=== PATIENT | female | born 1995 ===

== ENCOUNTER 2024-02-29 07:25 | Inpatient (IN) ==
[2024-02-29] MEDS ORDERED: ACETAMINOPHEN 325 MG TAB PO PRN (08:18)
[2024-02-29] MEDS ORDERED: OXYTOCIN 30 UNITS/NSS 30 UNITS/500 ML BAG IV PRN ×3 (08:18→23:48)
[2024-02-29] MEDS ORDERED: LIDOCAINE 1% LOCAL 20 ML VIAL INFIL PRN (08:18)
[2024-02-29] MEDS ORDERED: CALCIUM CARBONATE 500 MG CHEWABLE TAB PO PRN (08:18)
--- OUTSIDE RECORDS SUMMARY | 2024-02-29 08:26 | External Medical Summary | Summary of Care ---
Author Name Unknown Organization [facility] Address [address] [facility] [facility] [address] Phone [phone] Care Team Providers Care Plastering Supervisor Name Role Phone Unavailable Primary Care Provider Unavailabl e Reason for Visit * Reason Comments Return Visit 39w 4d Encounter Details Date Type Department Care Team (Late st Contact Info) Description 02/26/2024 7:30 AM EST Office Visit Gynecology/Obstetri Lori [address]cintosh [address] [address] Felicia Briceno PA-C [address] [facility] [place] [address] [address] [facility] [address] [place] [address] Supervision of other normal , antepartum*; Abnormal glucose tolerance in mother complicating Allergies No known active allergiesdocumented as of this encounter (statuses as of 02/26/2024) Medications DHA 200 MG Oral Capsule (docosahexaenoi c Acid) Take 1 Capsule by mouth in the morning. Active Breast Pump For breast feeding mother 1 Each 12/15/2023 Active documented as of this encounter (statuses as of 02/26/2024) Active Problems Problem Noted Date Diagnosed Date Antepartum anemia complicating 024 Abnormal glucose tolerance in mother complicatin g 12/18/2023 Overview (12/18/2023): 1 hour elevated 10/28. Supervision of other normal , antepartu m 08/28/2023 Estimated Date of Delivery Comme nts Yes 02/29/2024 Based on Ultraso und documented as of this encounter (statuses as of 02/26/2024) Immunizations Name Administration Dates Next Due Adenovirus Type 4 And Type 7 Vacc, Live Oral 10/22/2014 Anthrax Vaccine 06/12/2023 Anthrax Vaccine, Adjuvanted (Cyfendus) 0 04/22/2021,01/03/2020,11/10/2018,04/29,09/08/2017,12/11/2015,11/05/2015 DTaP Dipth/Tet/Acell Pertussis (Infanrix), Peds 06/09/2007,11/03/1997,1996,09/17,1996 HIB PRP-T, 4 Dose, PF, IM (H iberix, ActHib) 11/03/1997,1996,1996,06/18 HPV Vaccine, 9-Valent 08/21/2008,11/28/2007,07/21 Hepatitis A Vaccine 09/09/2008,11/28/2007 Hepatitis B, 0-19 yrs 06/08/2015, 015,10/22/2014,10/29,1996,1996 IPV - Polio Virus Vaccine (Inact) 2014,09/17/2001,11/03/1997,08/28,1996 MMR - Measles/Mumps/Rubella Vaccine 07/22,12/02/2014,10/22/2014,01/27,09/17/2001 Meningococcal MCV4O Conjugat e Vaccine (Menveo) 05/08/2012 Meningococcal MCV4P Conjugat e Vaccine (Menactra) 10/17/2014 Meningococcal Polysaccharide Vaccine (Menommune) 08/03/2007 PPD 12/12/2022,01/03/2020 Seasonal Influenza Vac., MDV , IM, 0.5 mL (Fluzone) 12/17/2020,10/19/2018,11/21/2017 Seasonal Influenza Virus Vac cine, Unspecified Formulation 12/17/2020,12/13/2019,12/02/2013,02/09,02/02/2010 Seasonal Influenza, Trivalen t, (IIV3), PF, (Fluzone) 12/11/2015,12/02/2014 TDAP (age 10 and older)(Boostrix) 10/17/2014 TDAP, Age 7 and older, IM (Adacel) 05/08/2012 Varicella Vaccine (Chicken Pox) 08/03/2007,11/03 documented as of this encounter Social History Tobacco Use Types Packs/Day Years Used Date Smoking Tobacco: Never Smokeless Tobacco: Never Alcohol Use Standard Drinks/Week Comments Not Currently 0 (1 standard drink = 0.6 oz pur e alcohol) [place] Depression Scale Answer Date Recorded [place] Depression Scale Total 0 08/28/2023 The thought of harming myself has occurred to me . Never 08/28/2023 Estimated Date of Delivery Comme nts Yes 02/29/2024 Based on Ultraso und Sex and Gender Information Value Date Recorded Sex Assigned at Not on file Legal Sex Female 2:57 PM EDT Gender Identity Not on file Sexual Orientation Not on file documented as of this encounter Last Filed Vital Signs Vital Sign Reading Time Taken Comments Blood Pressure 98/64 02/26/2024 7:52 AM EST Pulse - - Temperature - - Respiratory Rate - - Oxygen Saturation - - Inhaled Oxygen Concentration - - Weight 67.9 kg (149 lb 12.8 oz) 02/26/2024 7:52 AM EST Height - - Body Mass Index 28.3 01/25/2024 1:29 PM EST documented in this encounter Progress Notes * Felicia Briceno PA-C - 02/26/2024 7:57 AM EST Lokesh Luciano is a 28 year old female who presents today for an elective repeat membrane sweep. She is currently scheduled for IOL at [facility] on 03/04. She had her BO on 02/21 - at that time, membranesweep was completed. She is feeling well since this visit, notes small amount of vaginal spotting. Reports good FM, denies LOF or contractions. She is scheduled for her next BO on 03/01. BP 98/64 | Wt 67.9 kg (149 lb 12.8 oz) | LMP 06/01/2023 (Approximate) | BMI 28.30 kg/m | BSA 1.71m FHT 130s CE: /-2 Membrane sweep completed per patient's request Underwriting Analyst Documentation Patient offered lan engineer and accepted. Name of lan engineer: Mildred Fajardo LPN TC placed to [facility] to check on earlier IOL date, nothing available sooner, will plan to keep IOL as scheduled on 03/04. Keep BO as scheduled for 03/01. Labor precautions and kick counts reviewed. documented in this encounter Nursing Notes * Paradise Quintana LPN - 02/26/2024 7:53 AM EST Chief Complaint Patient presents with Return Visit 39w 4d Spotting since last membrane sweep documented in this encounter Plan of Treatment Upcoming Encounters Date Type Department Care Team (Late st Contact Info) Description 03/01/2024 10:30 AM EST Office Visit Gynecology/Obstetrics, [place] [place] [address] Silvana Edwards PA-C [address] [place] [address] Health Maintenance Due Date Last Done Comments Depression Screening 2008 COVID-19 Vaccine ( season) 2023 12/13/2020, 11/08/2020 Influenza Vaccine (FLU shot) (#1) 2023 12/17/2020, 12/17/2020, 12/13/2019, Additional history exists DTap/Tdap Vaccines (8 - Td or Tdap) 10/17/2024 10/17/2014, 05/08/2012, 06/09/2007, Additional history exists Pap Smear 08/27/2026 08/28/2023 HPV (Gardasil) Vaccine Completed 9, 11/28/2007, 08/03/2007 MENINGOCOCCAL (MENACTRA/MENVEO) Completed 10/17/2014, 05/08/2012, 08/03/2007 Hepatitis B Vaccine Completed 06/08/2015, 12/02/2014, 10/22/2014, Additional history exists Pneumococcal Vaccine: Pediatrics (0 to 5 Years) and At-Risk Patients (6 to 18 Years and 19+ Years) Aged Out No longer eligib le based on patient's age to complete this topic documented as of this encounter Medical Devices Not on filedocumented as of this encounter Visit Diagnoses Diagnosis Supervision of other normal , antepartum- Primary Abnormal glucose tolerance in mother complicating Abnormal maternal glucose tolerance, complicating , childbirth, or the puerperium, unspecified as to episode of care documented in this encounter"
--- OUTSIDE RECORDS SUMMARY | 2024-02-29 08:26 | External Medical Summary ---
Author Name Unknown Address Unknown Organization [id number]:[facility] - [address] [place] [address] Laboratory Report Ordering Provider Test Date Status JEFERSON MONSALVE 02/09/2024 10:24:43 Final Observation Date Value Abnormality Reference (Units ) Status WBC, Total 02/09/2024 10:24:43 6.19 4.00-10.80 (K/uL) Final RBC 02/09/2024 10:24:43 3.60 3.85-5.15 (M/uL) Final Hemoglobin 02/09/2024 10:24:43 11.4 Below low normal 12.0-15.3 (g/dL) Final HCT 02/09/2024 10:24:43 35.1 Below low normal 36.0-45.2 (%) Final MCV 02/09/2024 10:24:43 97.5 81.5-97.5 (fL) Final MCH 02/09/2024 10:24:43 31.7 27.0-34.0 (pg) Final MCHC 02/09/2024 10:24:43 32.5 32.0-36.0 (g/dL) Final RDW 02/09/2024 10:24:43 13.1 11.5-15.5 (%) Final Platelets 02/09/2024 10:24:43 147 140-400 (K/uL) Final MPV 02/09/2024 10:24:43 11.8 6.6-11.1 (fL) Final Nucleated erythrocytes/100 leukocytes [Ratio] in Blood by Automated count 02/09/2024 10:24:43 0 <=0 (/100 WBCs) Final Performing Location [facility] - [address] [place] [address]
--- OUTSIDE RECORDS SUMMARY | 2024-02-29 08:26 | External Medical Summary | Summary of Care ---
Author Name Unknown Organization [facility] Address [address] [facility] [place] [address] Phone [phone] Care Team Providers Care Order Packer Or Packager Name Role Phone Unavailable Primary Care Provider Unavailabl e Reason for Visit * Reason Comments Return Visit 39w0d Encounter Details Date Type Department Care Team (Late st Contact Info) Description 02/22/2024 10:00 AM EST Office Visit [facility]necology[facility]st[facility] [address] [facility] [address] Angela Alex MD [address] [place] [phone] 39 weeks gestation of *; Abnormal glucose tolerance in mother complicating ; Antepartum anemia complicating ; Supervision of other normal , antepartum Allergies No known active allergiesdocumented as of this encounter (statuses as of 02/22/2024) Medications DHA 200 MG Oral Capsule (docosahexaenoi c Acid) Take 1 Capsule by mouth in the morning. Active Breast Pump For breast feeding mother 1 Each 12/15/2023 Active documented as of this encounter (statuses as of 02/22/2024) Active Problems Problem Noted Date Diagnosed Date Antepartum anemia complicating 024 Abnormal glucose tolerance in mother complicatin g 12/18/2023 Overview (12/18/2023): 1 hour elevated 12/17. Supervision of other normal , antepartu m 08/28/2023 Estimated Date of Delivery Comme nts Yes 02/29/2024 Based on Ultraso und documented as of this encounter (statuses as of 02/22/2024) Immunizations Name Administration Dates Next Due Adenovirus [...] drink = 0.6 oz pur e alcohol) [place] Depression Scale Answer Date Recorded [place] Depression Scale Total 0 08/28/2023 The thought [...] Sign Reading Time Taken Comments Blood Pressure 100/60 02/22/2024 9:56 AM EST Pulse - - Temperature 36.4 C (97.5 F) 02/22/2024 9:56 AM ES T Respiratory Rate - - Oxygen Saturation - - Inhaled Oxygen Concentration - - Weight 67.7 kg (149 lb 3.2 oz) 02/22/2024 9:56 A M EST Height - - Body Mass Index 28.19 01/25/2024 1:29 PM EST documented in this encounter Progress Notes * Angela Alex MD - 02/22/2024 10:00 AM EST Patient is 28 year old at 39 0/7 weeks who presents for BO visit Denies leaking of fluid, or vaginal bleeding. Noted good movement. Ctx on and off, increased at nightime Denies headache, blurry vision, RUQ or epigastric pain. Would like membrane stripped today, would like to pursue scheduling induction at [facility] by 40 weeks Problem list reviewed BP 100/60 | Temp 36.4 C (97.5 F) | Wt 67.7 kg (149 lb 3.2 oz) | LMP 06/01/2023 (Approximate) | BMI 28.19 kg/m | BSA 1.71 m FH: 36 FHT: 145 Cx: 1-2/50/-3, sutures felt, membrane swept. Patient tolerated procedure well Supervisor Last Model Department Documentation Provider requested coat repair inspector. Name of coat repair inspector: Yuli Ford LPN Plan: Labor and preeclampsia warnings reviewed Flu vaccine previously declined Will have nursing all to schedule IOL at [facility] RTC 1 weeks V Abi MARINELLI PhD documented in this encounter Nursing Notes * Yuli Ford LPN - 02/22/2024 9:57 AM EST Chief Complaint Patient presents with Return Visit 39w0d Pt denied having any concerns at today's visit. Pt reports positive movement. Yuli Ford LPN 02/22/2024 9:57 AM documented in this encounter Plan of Treatment Upcoming Encounters Date Type Department Care Team (Late st Contact Info) Description 03/01/2024 10:30 AM EST Office Visit Gynecology/Obstetrics, [address] [place] [address] Silvana Edwards PA-C [address] [place] [address] Health Maintenance Due Date Last Done Comments [...] as of this encounter Visit Diagnoses Diagnosis 39 weeks gestation of - Primary state, incidental Abnormal glucose tolerance in mother complicating Abnormal maternal glucose tolerance, complicating , childbirth, or the puerperium, unspecified as to episode of care Antepartum anemia complicating Anemia, antepartum Supervision of other normal , antepartum documented in this encounter"
--- OUTSIDE RECORDS SUMMARY | 2024-02-29 08:26 | External Medical Summary | Summary of Care ---
Author Name Unknown Organization [facility] Address [address] [facility] [place] [address] Phone [phone] Care Team Providers Care Plumbing Warehouse Helper Name Role Phone Unavailable Primary Care Provider Unavailabl e Reason for Visit * Reason Comments Return Visit 38w1d Encounter Details Date Type Department Care Team (Late st Contact Info) Description 02/16/2024 11:30 AM EST Office Visit Gynecology/Obstetric Lori diallo [address] [place] [address] Jocy Padilla MD [address] [place] [address] 38 weeks gestation of *; Abnormal glucose tolerance in mother complicating ; Uterine size date discrepancy Allergies No known active allergiesdocumented as of this encounter (statuses as of 02/16/2024) Medications DHA 200 MG Oral Capsule (docosahexaenoi c Acid) Take 1 Capsule by mouth in the morning. Active Breast Pump For breast feeding mother 1 Each 12/15/2023 Active documented as of this encounter (statuses as of 02/16/2024) Active Problems Problem Noted Date Diagnosed Date Antepartum anemia complicating 024 Abnormal glucose tolerance in mother complicatin g 12/18/2023 Overview (12/18/2023): 1 hour elevated 12/17. Supervision of other normal , antepartu m 08/28/2023 Estimated Date of Delivery Comme nts Yes 02/29/2024 Based on Ultraso und documented as of this encounter (statuses as of 02/16/2024) Immunizations Name Administration Dates Next Due Adenovirus [...] Date Smoking Tobacco: Never Smokeless Tobacco: Never Tobacco Cessation:Counseling Given: Not Answered Alcohol Use Standard Drinks/Week Comments Not Currently 0 (1 standard drink = 0.6 oz pur e alcohol) [place] Depression Scale Answer Date Recorded [place] Depression Scale Total 0 08/28/2023 The thought [...] Sign Reading Time Taken Comments Blood Pressure 110/66 02/16/2024 11:39 AM EST Pulse - - Temperature 36.6 C (97.8 F) 02/16/2024 11:[address] Respiratory Rate - - Oxygen Saturation - - Inhaled Oxygen Concentration - - Weight 67.6 kg (149 lb) 02/16/2024 11:39 AM EST Height - - Body Mass Index 28.15 01/25/2024 1:29 PM EST documented in this encounter Progress Notes * Jocy Padilla MD - 02/16/2024 11:46 AM EST Lokesh Luciano is a 28 year old female here for her routine OB appointment at 38w1d Her Estimated Date of Delivery: 02/29/24 REVIEW OF SYSTEMS: She affirms movement. Denies vaginal bleeding, LOF, contractions, N/V, headaches [place] Depression Scale: No data recorded [place] suicide question and score: Score of 3 = Yes, quite often. Score of 2 = Sometimes. Score of 1 = Hardly ever No data recorded PHYSICAL EXAM: Filed Vitals: 02/16/24 1139 BP: 110/66 Temp: 36.6 C (97.8 F) Weight: 67.6 kg (149 lb) +FHT 145 bpm Fundal height 35 cm ASSESSMENT/PLAN: (O99.810) Abnormal glucose tolerance in mother complicating Plan: 3 hour GTT was within normal limits. (O26.849) Uterine size date discrepancy Plan: US PREG FOLLOW-UP EACH FETUS (Z3A.38) 38 weeks gestation of (primary encounter diagnosis) Plan: - recommended flu vaccine - patient declined today - labor precautions and kick counts reviewed - RTO in 1 week Jocy Padilla MD documented in this encounter Nursing Notes * Yuli Ford LPN - 02/16/2024 11:39 AM EST Chief Complaint Patient presents with Return Visit 38w1d Pt reports positive movement Yuli Ford LPN 02/16/2024 11:39 AM documented in this encounter Plan of Treatment Upcoming Encounters Date Type Department Care Team (Late st Contact Info) Description 02/22/2024 10:00 AM EST Office Visit Gynecology/Obstetrics, [address] [place] [address] Angela Alex MD [address] [facility] [place] [address] Health Maintenance Due Date Last Done Comments [...] Not on filedocumented as of this encounter Results * US PREG FOLLOW-UP EACH FETUS (02/16/2024 12:36 PM EST) Anatomical Region Laterality Modality Pelvis, Body Ultrasound 02/16/2024 1:07 PM EST Impressions 02/16/2024 1:05 PM EST IMPRESSION 1. Growth within normal limits utilizing FRANKY from initial scan, as above. 2. Normal BLAYNE 3. Vertex presentation. Narrative 02/16/2024 1:05 PM EST EXAM US PREG FOLLOW-UP EACH FETUS - 02/16/2024 12:36 pm HISTORY Uterine size dates discrepancy COMPARISON 08/18/2023. TECHNIQUE Sonographic examination performed. FINDINGS General : Aleman Presentation: Vertex heart rate: 161 bpm Amniotic Fluid: MVP 7.0 cm BLAYNE: 16.2 cm which is between the 50th and 95th percentiles for this stage of . Placenta: Anterior, no previa Anatomy 4-chamber view: Seen Stomach: Seen Kidneys: Seen Bladder: Seen Biometry The previous study of 08/18/2023 estimated the date of delivery of 02/29/2024. Utilizing that date, current gestational age is 38 weeks 1 day. Biparietal diameter: 9.0 cm, 36w 4d Head circumference: 32.3 cm, 36w 4d Abdominal circumference: 34.1 cm, 38w 0d Femur length: 7.2 cm, 36w 5d Humeral length: 6.1 cm, 35w 2d HC/AC: 0.95, within normal limits EFW: 3186 g +/- 465 g which is the 43rd percentile. Utilizing the date of delivery obtained from the initial scan, growth of the BPD, HC, AC, femur and humerus is within normal limits. The humerus is lower range of normal. Procedure Note Bryan Dior MD - 02/16/2024 EXAM US PREG FOLLOW-UP EACH FETUS - 02/16/2024 12:36 pm HISTORY Uterine size dates discrepancy COMPARISON 08/18/2023. TECHNIQUE Sonographic examination performed. FINDINGS General : Aleman Presentation: Vertex heart rate: 161 bpm Amniotic Fluid: MVP 7.0 cm BLAYNE: 16.2 cm which is between the 50th and 95th percentiles for this stageof . Placenta: Anterior, no previa Anatomy 4-chamber view: Seen Stomach: Seen Kidneys: Seen Bladder: Seen Biometry The previous study of 08/18/2023 estimated the date of delivery of02/29/2024. Utilizing that date, current gestational age is 38 weeks 1day. Biparietal diameter: 9.0 cm, 36w 4d Head circumference: 32.3 cm, 36w 4d Abdominal circumference: 34.1 cm, 38w 0d Femur length: 7.2 cm, 36w 5d Humeral length: 6.1 cm, 35w 2d HC/AC: 0.95, within normal limits EFW: 3186 g +/- 465 g which is the 43rd percentile. Utilizing the date of delivery obtained from the initial scan, growth ofthe BPD, HC, AC, femur and humerus is within normal limits. The humerusis lower range of normal. IMPRESSION IMPRESSION 1. Growth within normal limits utilizing FRANKY from initial scan, asabove. 2. Normal BLAYNE 3. Vertex presentation. us Jocy Padilla MD RAD ULTRASOUND Final Result documented in this encounter Visit Diagnoses Diagnosis 38 weeks gestation of - Primary state, incidental Abnormal glucose tolerance in mother complicating Abnormal maternal glucose tolerance, complicating , childbirth, or the puerperium, unspecified as to episode of care Uterine size date discrepancy Uterine size date discrepancy, antepartum condition or complication Uterine size date discrepancy Uterine size date discrepancy, antepartum condition or complication documented in this encounter
--- OUTSIDE RECORDS SUMMARY | 2024-02-29 08:26 | External Medical Summary | Summary of Care ---
Author Name Unknown Organization [facility] Address [address] [facility] [address] Phone [phone] Care Team Providers Care First Mate Name Role Phone Unavailable Primary Care Provider Unavailabl e Reason for Visit * Reason Comments Return Visit 37w1d Encounter Details Date Type Department Care Team (Late st Contact Info) Description 02/09/2024 9:00 AM EST Office [facility] [address] Angela Alex MD [address] [place] [phone] 37 weeks gestation of *; Abnormal glucose tolerance in mother complicating ; Supervision of other normal , antepartum; Antepartum anemia complicating ; Decreased movements in third trimester, single or unspecified fetus Allergies No known active allergiesdocumented as of this encounter (statuses as of 02/09/2024) Medications DHA 200 MG Oral Capsule (docosahexaenoi c Acid) Take 1 Capsule by mouth in the morning. Active Breast Pump For breast feeding mother 1 Each 12/15/2023 Active documented as of this encounter (statuses as of 02/09/2024) Active Problems Problem Noted Date Diagnosed Date Antepartum anemia complicating 024 Abnormal glucose tolerance in mother complicatin g 12/18/2023 Overview (12/18/2023): 1 hour elevated 12/17. Supervision of other normal , antepartu m 08/28/2023 Estimated Date of Delivery Comme nts Yes 02/29/2024 Based on Ultraso und documented as of this encounter (statuses as of 02/09/2024) Immunizations Name Administration Dates Next Due Adenovirus [...] drink = 0.6 oz pur e alcohol) [place] Depression Scale Answer Date Recorded [place] Depression Scale Total 0 08/28/2023 The thought [...] Sign Reading Time Taken Comments Blood Pressure 118/64 02/09/2024 8:55 AM EST Pulse - - Temperature 36.3 C (97.3 F) 02/09/2024 8:55 AM ES T Respiratory Rate - - Oxygen Saturation - - Inhaled Oxygen Concentration - - Weight 66.9 kg (147 lb 6.4 oz) 02/09/2024 8:55 A M EST Height - - Body Mass Index 27.85 01/25/2024 1:29 PM EST documented in this encounter Progress Notes * Angela Alex MD - 02/09/2024 9:00 AM EST Patient is 28 year old at 37 1/7 weeks who presents for BO visit States she had possible loss of fluid approximately 36 hours go, and then regular contractions every 3 minutes that lasted for 1-1/2 hours but have since subsided. She also notes decreased in amount of movement of the baby is still moving. No other complaints at this time Discuss further with insurance and is now planning to deliver at [facility] Problem list reviewed BP 118/64 | Temp 36.3 C (97.3 F) | Wt 66.9 kg (147 lb 6.4 oz) | LMP 06/01/2023 (Approximate) | BMI 27.85 kg/m | BSA 1.7 m FH: 35 FHT: 145-150 Sterile speculum exam: Negative pooling, negative Valsalva, negative Nitrazine Patient desires cervical check Cx: Gang Supervisor Pipe Lines Documentation Provider requested hull sorter. Name of hull sorter: Mildred Fajardo LPN ASSESSMENT assessment with Non-stress test completed on 02/09/2024 at 37 1/7 gestation for indication ofdecreased movement heart baseline: 140-145 bpm Variability: Moderate Accelerations: present Decelerations: absent Contractions: irregular NST strip reviewed, interpreted, and approved by OB provider, Randy Alex. NST strip stored in clinic storage file NST start time: 1002 NST stop time: 1035 Plan: Labor and preeclampsia warnings reviewed RTC 1 weeks Randy Alex MD PhD documented in this encounter Nursing Notes * Mildred Fajardo LPN - 02/09/2024 8:52 AM EST Chief Complaint Patient presents with Return Visit 37w1d Pt states two nights ago while having intercourse she felt a pop and she feels like her water broke. States she had a gush of fluid and then started having contractions every 3 minutes lasting 40 seconds for an hour and a half then subsided. Has felt decreased movement since this happened and states she intermittently feels a small trickle of fluid but nothing that is consistent. Denies any vaginal bleeding. GBS neg Mildred Fajardo LPN documented in this encounter Plan of Treatment Upcoming Encounters Date Type Department Care Team (Late st Contact Info) Description 02/09/2024 10:30 AM EST Laboratory Laboratory, [address] [place] [address] [facility], Lab [address] [place] [address] Antepartum anemia complicating 02/16/2024 11:30 AM EST Office Visit Gynecology/Obstetric s, [place] [address] [place] [address] Jocy Padilla MD [address] [place] [address] Scheduled Orders Name Type Priority Associated Diagnoses Orde r Schedule CBC Lab Routine Antepartum anemia complicating Expected: 02/09/2024, Expires: 02/08/2025 Health Maintenance Due Date Last Done Comments Depression Screening 2008 COVID-19 Vaccine ( season) 2023 12/13/2020, 11/08/2020 Influenza Vaccine (FLU shot) (#1) 2023 12/17/2020, 12/17/2020, 12/13/2019, Additional history exists DTap/Tdap Vaccines (8 - Td or Tdap) 10/17/2024 10/17/2014, 05/08/2012, 06/09/2007, Additional history exists Pap Smear 08/27/2026 08/28/2023 HPV (Gardasil) Vaccine Completed , 11/28/2007, 08/03/2007 MENINGOCOCCAL (MENACTRA/MENVEO) Completed 10/17/2014, 05/08/2012, 08/03/2007 Hepatitis B Vaccine Completed 06/08/2015, 12/02/2014, 10/22/2014, Additional history exists Pneumococcal Vaccine: Pediatrics (0 to 5 Years) and At-Risk Patients (6 to 64 Years) Aged Out No longer eligible based on patient's age to complete this topic documented as of this encounter Medical Devices Not on filedocumented as of this encounter Visit Diagnoses Diagnosis 37 weeks gestation of - Primary state, incidental Abnormal glucose tolerance in mother complicating Abnormal maternal glucose tolerance, complicating , childbirth, or the puerperium, unspecified as to episode of care Supervision of other normal , antepartum Antepartum anemia complicating Anemia, antepartum Decreased movements in third trimester, single or unspecified fetus Antepartum anemia complicating Anemia, antepartum documented in this encounter"
--- OUTSIDE RECORDS SUMMARY | 2024-02-29 08:26 | External Medical Summary | Summary of Care ---
Author Name Unknown Organization [facility] Address [address] [facility] [place] [address] Phone [phone] Care Team Providers Care Modeling And Simulation Analyst Name Role Phone Unavailable Primary Care Provider Unavailabl e Reason for Visit * Reason Comments Return Visit 39w0d Encounter Details Date Type Department Care Team (Late st Contact Info) Description 02/22/2024 10:00 AM EST Office [facility] [address] Angela Alex MD [address] [place] [phone] 39 weeks gestation of *; Abnormal glucose [...] drink = 0.6 oz pur e alcohol) [place] Depression Scale Answer Date Recorded [place] Depression Scale Total 0 08/28/2023 The thought [...] would like to pursue scheduling induction at [facility] by 40 weeks Problem list reviewed BP 100/60 | Temp 36.4 C (97.5 F) | Wt 67.7 kg (149 lb 3.2 oz) | LMP 06/01/2023 (Approximate) | BMI 28.19 kg/m | BSA 1.71 m FH: 36 FHT: 145 Cx: 1-2/50/-3, sutures felt, membrane swept. 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 Name of news specialist: Yuli Ford LPN Plan: Labor and preeclampsia warnings reviewed Flu vaccine previously declined Will have nursing all to schedule IOL at [facility] RTC 1 weeks V Abi MARINELLI PhD [...] 03/01/2024 10:30 AM EST Office Visit Gynecology/Obstetrics, [address] [place] [address] Silvana Edwards PA-C [address] [place] [address] Health Maintenance Due Date Last Done Comments [...]
--- OUTSIDE RECORDS SUMMARY | 2024-02-29 08:26 | External Medical Summary | Summary of Care ---
Author Name Unknown Organization [facility] Address [address] [place] [address] Phone [phone] Care Team Providers Care Metal Tube Cutter Name Role Phone Unavailable Primary Care Provider Unavailabl e Reason for Visit * Reason Comments Outpatient Testing Encounter Details Date Type Department Care Team (Late st Contact Info) Description 02/09/2024 10:30 AM EST Laboratory Laboratory, [facility] [address] [place] [id number] [facility], Lab [address] [place] [address] Antepartum anemia complicating Allergies No known active allergiesdocumented as [...] drink = 0.6 oz pur e alcohol) Martin Depression Scale Answer Date Recorded Martin Depression Scale Total 0 08/28/2023 The thought of harming myself has occurred to me . Never 08/28/2023 Estimated Date of Delivery Comme nts Yes 02/29/2024 Based on Ultraso und Sex and Gender Information Value Date Recorded Sex Assigned at Not on file Legal Sex Female 2:57 PM EDT Gender Identity Not on file Sexual Orientation Not on file documented as of this encounter Plan of Treatment Upcoming Encounters Date Type Department Care Team (Late st Contact Info) Description 02/16/2024 11:30 AM EST Office Visit Gynecology/Obstetrics, [address] [place] [address] Jocy Padilla MD [address] [place] [address] Pending Results Name Type Priority Associated Diagnoses Date /Time CBC Lab Routine Antepartum anemia complicating 02/09/2024 10:24 AM EST Health Maintenance Due Date Last Done Comments [...] as of this encounter Visit Diagnoses Diagnosis Antepartum anemia complicating Anemia, antepartum documented in this encounter
--- OUTSIDE RECORDS SUMMARY | 2024-02-29 08:26 | External Medical Summary | Summary of Care ---
Author Name Unknown Organization [facility] Address [address] [facility] [address] Phone [phone] Care Team Providers Care Management Recruiter Name Role Phone Unavailable Primary Care Provider Unavailabl e Reason for Visit * Reason Comments Return Visit Possible fluid robson puma Encounter Details Date Type Department Care Team (Late st Contact Info) Description 02/13/2024 9:30 AM EST Office Visit Gynecology/[facility]st[facility] [address] [facility] [place] [address] Abby Crockett, ALISA [address] [facility] [place] [address] Supervision of other normal , antepartum*; Abnormal glucose tolerance in mother complicating Allergies No known active allergiesdocumented as of this encounter (statuses as of 02/13/2024) Medications DHA 200 MG Oral Capsule (docosahexaenoi c Acid) Take 1 Capsule by mouth in the morning. Active Breast Pump For breast feeding mother 1 Each 12/15/2023 Active documented as of this encounter (statuses as of 02/13/2024) Active Problems Problem Noted Date Diagnosed Date Antepartum anemia complicating 024 Abnormal glucose tolerance in mother complicatin g 12/18/2023 Overview (12/18/2023): 1 hour elevated 12/17. Supervision of other normal , antepartu m 08/28/2023 Estimated Date of Delivery Comme nts Yes 02/29/2024 Based on Ultraso und documented as of this encounter (statuses as of 02/13/2024) Immunizations Name Administration Dates Next Due Adenovirus [...] drink = 0.6 oz pur e alcohol) [place] Depression Scale Answer Date Recorded [place] Depression Scale Total 0 08/28/2023 The thought [...] Reading Time Taken Comments Blood Pressure 110/66 02/13/2024 9:32 AM EST Pulse - - Temperature 36.6 C (97.9 F) 02/13/2024 9:32 AM ES T Respiratory Rate - - Oxygen Saturation - - Inhaled Oxygen Concentration - - Weight 66.8 kg (147 lb 3.2 oz) 02/13/2024 9:32 A M EST Height - - Body Mass Index 27.81 01/25/2024 1:29 PM EST documented in this encounter Progress Notes * Abby Crockett CNM - 02/13/2024 9:30 AM EST Lokesh Luciano is a 28 year old female here for her routine OB appointment at 37w5d Her Estimated Date of Delivery: 02/29/24 REVIEW OF SYSTEMS: She affirms movement. Denies vaginal bleeding,, N/V, headaches Has been having contractions off and on for several days Yesterday had a small gush of fluid in the morning and has had a few small leaks today. PHYSICAL EXAM: Filed Vitals: 02/13/24 0932 BP: 110/66 Temp: 36.6 C (97.9 F) TempSrc: Tympanic Weight: 66.8 kg (147 lb 3.2 oz) +FHT 140s SSE: negative pooling, negative nitrazine ASSESSMENT/PLAN: No diagnosis found. Supervision of - labor precautions and kick counts reviewed - RTO for scheduled appt on 02/16/24 Abby Crockett CNM documented in this encounter Nursing Notes * Diane Garcia CMA - 02/13/2024 9:31 AM EST Chief Complaint Patient presents with Return Visit Possible fluid leaking Pt reports leaking of fluid yesterday morning. Have been noticing underwear are soaked. Slow leaking, has not felt gush. Contractions x 2 days intermittently documented in this encounter Plan of Treatment Upcoming Encounters Date Type Department Care Team (Late st Contact Info) Description 02/16/2024 11:30 AM EST Office Visit Gynecology/Obstetrics, [address] [place] [id number] Jocy Padilla MD [address] [place] [address] Health Maintenance Due Date Last Done Comments [...] to episode of care documented in this encounter
--- OUTSIDE RECORDS SUMMARY | 2024-02-29 08:27 | External Medical Summary ---
Author Name Unknown Address Unknown Organization K[facility] [place] [address] [place] [address] Laboratory Report Ordering Provider Test Date Status ANNETTE BOONE 12/15/2023 13:44:20 Final Observation Date Value Abnormality Reference (Units ) Status Glucose [Moles/volume] in Serum or Plasma --1 hour post 50 g glucose PO 12/15/2023 13:44:20 157 Above high normal 70-129 (mg/dL) Final Performing Location [facility] [place] [address] [place] [address]
--- OUTSIDE RECORDS SUMMARY | 2024-02-29 08:27 | External Medical Summary ---
Author Name Unknown Address Unknown Organization K01:[facility] [place] [address] [address] Laboratory Report Ordering Provider Test Date Status ANNETTE BOONE 12/29/2023 10:08:13 Final Observation Date Value Abnormality Reference (Units ) Status Glucose [Mass/volume] in Serum or Plasma --1 hour post dose glucose 12/29/2023 10:08:13 142 70-179 (mg/dL) Final Performing Location [facility] [place] - [address] [place] [address]
--- OUTSIDE RECORDS SUMMARY | 2024-02-29 08:27 | External Medical Summary | Summary of Care ---
Author Name Unknown Organization [facility] Address [address] [place] [facility] [place] [address] Phone [phone] Care Team Providers Care Cement Truck Loader Name Role Phone Unavailable Primary Care Provider Unavailabl e Reason for Visit * Reason Comments Return Visit 25w6d Encounter Details Date Type Department Care Team (Late st Contact Info) Description 11/22/2023 3:30 PM EDT Office [facility]necology[facility] [address] [facility] [address] Mely Bryant PA-C [address] [place] [address] Supervision of other normal , antepartum*; Abnormal glucose tolerance in mother complicating Allergies No known active allergiesdocumented as of this encounter (statuses as of 12/18/2023) Medications Medication Sig Dispensed Refills Start Date End Date Status DHA 200 MG Oral Capsule (docosahexaenoic Acid) Take 1 Capsule by mouth in the morning. Active documented as of this encounter (statuses as of 12/18/2023) Active Problems Problem Noted Date Diagnosed Date Abnormal glucose tolerance in mother complicatin g 12/18/2023 Overview: 1 hour elevated 12/17. Supervision of other normal , antepartu m 08/28/2023 Estimated Date of Delivery Comme nts Yes 02/29/2024 Based on Ultraso und documented as of this encounter (statuses as of 12/18/2023) Immunizations Name Administration Dates Next Due Adenovirus [...] drink = 0.6 oz pur e alcohol) Vincent Depression Scale Answer Date Recorded Vincent Depression Scale Total 0 08/28/2023 The thought of harming myself has occurred to me . Never 08/28/2023 Utilities Answer Date Recorded Do you have trouble paying y our heating, water, or electric bill? (Adult - for ages 18 years and over) Not on file 08/08/2023 Is your family able to pay t he heat, water, or electric bill? (Household - for ages 0-17 years) Not on file 08/08/2023 Does your family have access to good internet? (Household - for ages 0-17 years) Not on file 08/08/2023 Social Connections Answer Date Recorded How often do you feel lonely or isolated from those around you? (Adult - for ages 18 years and over) Not on file 08/08/2023 Estimated Date of Delivery Comme nts Yes 02/29/2024 Based on Ultraso und Sex and Gender Information Value Date Recorded Sex Assigned at Not on file Gender Identity Not on file Sexual Orientation Not on file Job Start Date Occupation Industry Not on file Not on file Not on file documented as of this encounter Last Filed Vital Signs Vital Sign Reading Time Taken Comments Blood Pressure 108/66 11/22/2023 3:21 PM EDT Pulse - - Temperature 36.8 C (98.3 F) 11/22/2023 3:21 PM ED T Respiratory Rate - - Oxygen Saturation - - Inhaled Oxygen Concentration - - Weight 62.1 kg (137 lb) 11/22/2023 3:21 PM EDT Height - - Body Mass Index - - documented in this encounter Progress Notes * Mely Bryant PA-C - 11/22/2023 3:30 PM EDT Lokesh Luciano is a 28 year old female here for her routine OB appointment at 25w6d Her Estimated Date of Delivery: 02/29/24 Patient reporting she is feeling good movement, but seems to be lower than in previous . She also inquires about delivering in [facility] versus at [facility] and what the process would be to schedule delivery there. She desires [facility] delivery as it is a larger hospital with increased access to resources if needed. REVIEW OF SYSTEMS She affirms movement. Denies vaginal bleeding, LOF, contractions, N/V, headaches, vision changes. PHYSICAL EXAM Filed Vitals: 11/22/23 1521 BP: 108/66 Temp: 36.8 C (98.3 F) Weight: 62.1 kg (137 lb) +FHT 140s Fundal height 26 cm ASSESSMENT/PLAN Supervision of other normal , antepartum (Primary) - CBC WITH WBC DIFFERENTIAL AND ANEMIA REFLEX WORKUP; Future; Expected date: 11/22/2023 - SYPHILIS ANTIBODY SCREEN WITH REFLEX TO RPR; Future; Expected date: 12/06/2023 - 50-G GESTATIONAL GLUCOSE, 1 HOUR; Future; Expected date: 12/06/2023 Supervision of - we reviewed and ordered GTT, RPR and CBC for her to complete with her next visit. - reviewed recommendation for Tdap vaccine at next visit. Patient declines. - rhogam is not needed at next visit d/t A+ blood type - reassurance given regarding movement and kick location. To monitor for any pain, contractions, bleeding, LOF. - discussed that we would call [facility] later in to schedule delivery in [place] similar to how she would be scheduled here. Did caution that scheduling IOL at [facility] would be at [facility], specifically if there is not a medical indication to do so. Can discuss further at subsequent BO visits. Plan to start 2 week BO appointments now to keep on schedule. Patient prefers to be seen in 3 weeks. Will schedule BO for 3 weeks. Mely Bryant PA-C 11/22/2023 documented in this encounter Nursing Notes * Jennifer Bueno, ANNE - 11/22/2023 3:22 PM EDT Chief Complaint Patient presents with Return Visit 25w6d Pt states she has felt a lot of kicks very low with this and wondering if this is appropriate. Jennifer Bueno CMA 11/22/2023 3:24 PM documented in this encounter Miscellaneous Notes * Addendum Note - Mely Bryant PA-C - 12/18/2023 8:08 AM EDT Addended by: MELY BRYANT on: 12/18/2023 08:08 AM Modules accepted: Orders documented in this encounter Plan of Treatment Upcoming Encounters Date Type Department Care Team (Late st Contact Info) Description 12/29/2023 8:45 AM EST Office Visit Gynecology/Obstetrics, [place] [address] [place] [address] Jocy Padilla MD [address] [place] [place] [address] 01/11/2024 3:00 PM EST Office Visit Gynecology/Obstetrics, [place] [address] [address] Jocy Padilla MD [address] [place] [address] Scheduled Orders Name Type Priority Associated Diagnoses Orde r Schedule GESTATIONAL GLUCOSE TOLERANCE, 3 HOUR Lab Routine Abnormal glucose tolerance in mother complicating Expected: 12/18/2023 (Approximate), Expires: 12/17/2024 Health Maintenance Due Date Last Done Comments [...] filedocumented as of this encounter Results * (ABNORMAL) 50-G GESTATIONAL GLUCOSE, 1 HOUR (12/15/2023 1:44 PM EDT) 50-g Gestational Glucose, 1 Hour 157(H) 70 - 129 mg/dL 12/15/2023 9:26 PM EDT LABORATORY [facility] Blood Venous blood specimen / Unknown Venipuncture / Unknown 12/15/2023 1:44 PM EDT 12/15/2023 1:44 PM EDT Mely Bryant PA-C LAB BLOOD ORDERABLES [facility]ORY [facility] [address] [facility] [place] [address] documented in this encounter Visit Diagnoses Diagnosis Supervision of other normal , antepartum- Primary Abnormal glucose tolerance in mother complicating Abnormal maternal glucose tolerance, complicating , childbirth, or the puerperium, unspecified as to episode of care documented in this encounter
--- OUTSIDE RECORDS SUMMARY | 2024-02-29 08:27 | External Medical Summary | Summary of Care ---
Author Name Unknown Organization [facility] Address [address] [address] Phone [phone] Care Team Providers Care Flower Arranger Name Role Phone Unavailable Primary Care Provider Unavailabl e Reason for Visit * Reason Comments Return Visit 36w Encounter Details Date Type Department Care Team (Late st Contact Info) Description 02/01/2024 1:30 PM EST Office Visit [place]st[place] [facility] [place] [address] Angela Alex MD [address] [facility] [place] [address] 36 weeks gestation of *; Abnormal glucose tolerance in mother complicating ; Supervision of other normal , antepartum; Need for prophylactic vaccination with combined gpemejjhfj-ptsfswo-hv rtussis (DTP) vaccine Allergies No known active allergiesdocumented as of this encounter (statuses as of 02/01/2024) Medications DHA 200 MG Oral Capsule (docosahexaenoi c Acid) Take 1 Capsule by mouth in the morning. Active Breast Pump For breast feeding mother 1 Each 12/15/2023 Active documented as of this encounter (statuses as of 02/01/2024) Active Problems Problem Noted Date Diagnosed Date Abnormal glucose tolerance in mother complicatin g 12/18/2023 Overview (12/18/2023): 1 hour elevated 12/17. Supervision of other normal , antepartu m 08/28/2023 Estimated Date of Delivery Comme nts Yes 02/29/2024 Based on Ultraso und documented as of this encounter (statuses as of 02/01/2024) Immunizations Name Administration Dates Next Due Adenovirus [...] drink = 0.6 oz pur e alcohol) [place] Depression Scale Answer Date Recorded [place] Depression Scale Total 0 08/28/2023 The thought [...] Sign Reading Time Taken Comments Blood Pressure 98/60 02/01/2024 1:25 PM EST Pulse - - Temperature 35.9 C (96.6 F) 02/01/2024 1:25 PM ES T Respiratory Rate - - Oxygen Saturation - - Inhaled Oxygen Concentration - - Weight 66.3 kg (146 lb 3.2 oz) 02/01/2024 1:25 P M EST Height - - Body Mass Index 27.62 01/25/2024 1:29 PM EST documented in this encounter Progress Notes * Angela Alex MD - 02/01/2024 1:30 PM EST Patient is 28 year old at 36 0/7 weeks who presents for BO visit Denies contractions, leaking of fluid, or vaginal bleeding. Noted good movement Denies headache, blurry vision, RUQ or epigastric pain. 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 Name of electroencephalographic technician: Mildred Fajardo LPN Plan: Labor and preeclampsia warnings reviewed Offered scheduling post dates induction at [facility], patient politely declines RTC 1 weeks V Abi MARINELLI PhD documented in this encounter Nursing Notes * Mildred Fajardo LPN - 02/01/2024 1:22 PM EST Chief Complaint Patient presents with Return Visit 36w Pt is with no concerns. GBS today. Mildred Fajardo LPN documented in this encounter Plan of Treatment Upcoming Encounters Date Type Department Care Team (Late st Contact Info) Description 02/09/2024 9:00 AM EST Office Visit Gynecology/Obstetrics, [address] [place] [address] Angela Alex MD [address] [place] [address] Pending Results Name Type Priority Associated Diagnoses Date /Time GROUP B STREP CULTURE/PCR Lab Routine 36 weeks gestation of 02/01/2024 2:01 PM EST Scheduled Orders Name Type Priority Associated Diagnoses Orde r Schedule GROUP B STREP CULTURE/PCR Lab Routine 36 weeks gestation of Expected: 02/01/2024, Expires: 01/31/2025 Health Maintenance Due Date Last Done Comments [...] as of this encounter Visit Diagnoses Diagnosis 36 weeks gestation of - Primary state, incidental Abnormal glucose tolerance in mother complicating Abnormal maternal glucose tolerance, complicating , childbirth, or the puerperium, unspecified as to episode of care Supervision of other normal , antepartum Need for prophylactic vaccination with combined pppayhkjee-dznvkkz-vyilndruh (DTP) vaccine documented in this encounter"
--- OUTSIDE RECORDS SUMMARY | 2024-02-29 08:27 | External Medical Summary ---
Author Name Unknown Address Unknown Organization [id number]:LABORATORY [facility] - [address] [place] [address] Laboratory Report Ordering Provider Test Date Status ANNETTE BOONE 12/15/2023 13:44:20 Final Observation Date Value Abnormality Reference (Units ) Status Folic Acid 12/15/2023 13:44:20 >20.0 >4.5 (ng/ mL) Final Performing Location LABORATORY [facility] - [address] [place] [address]
--- OUTSIDE RECORDS SUMMARY | 2024-02-29 08:27 | External Medical Summary | Summary of Care ---
Author Name Unknown Organization [facility] Address [address] [address] Phone [phone] Care Team Providers Care Java Lead Developer Name Role Phone Unavailable Primary Care Provider Unavailabl e Reason for Visit * Reason Comments Return Visit 36w Encounter Details Date Type Department Care Team (Late st Contact Info) Description 02/01/2024 1:30 PM EST Office Visit [place]cology[place] [facility] [place] [address] Angela Alex MD [address] [facility] [place] [address] 36 weeks gestation of *; Abnormal glucose tolerance in mother complicating ; Supervision of other normal , antepartum; Need for prophylactic vaccination with combined bwtlcpgjpn-mcgeqgs-rz rtussis (DTP) vaccine Allergies No known active [...] drink = 0.6 oz pur e alcohol) [place] Depression Scale Answer Date Recorded [place] Depression Scale Total 0 08/28/2023 The thought [...] blurry vision, RUQ or epigastric pain. 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 Name of clinical registered nurse: Mildred Fajardo LPN Plan: Labor and preeclampsia warnings reviewed Offered scheduling post dates induction at [facility], patient politely declines RTC 1 weeks V [...] 02/09/2024 9:00 AM EST Office Visit Gynecology/Obstetrics, [address] [place] [address] Angela Alex MD [address] [place] [...] antepartum Need for prophylactic vaccination with combined wfqawdaodw-nchwnfy-idmpjguyp (DTP) vaccine documented in this encounter"
--- OUTSIDE RECORDS SUMMARY | 2024-02-29 08:27 | External Medical Summary | Summary of Care ---
Author Name Unknown Organization [facility] Address [address] [place] [address] Phone [phone] Care Team Providers Care Tattoo Technician Name Role Phone Unavailable Primary Care Provider Unavailabl e Reason for Visit * Reason Comments Outpatient Testing Encounter Details Date Type Department Care Team (Late st Contact Info) Description 12/29/2023 9:10 AM EST Laboratory Laboratory, [facility] [address] [place] [phone] [facility], Lab [address] [place] [address] Abnormal glucose tolerance in mother complicating Allergies No known active allergiesdocumented as of this encounter (statuses as of 12/29/2023) Medications DHA 200 MG Oral Capsule (docosahexaenoi c Acid) Take 1 Capsule by mouth in the morning. Active Breast Pump For breast feeding mother 1 Each 12/15/2023 Active documented as of this encounter (statuses as of 12/29/2023) Active Problems Problem Noted Date Diagnosed Date Abnormal glucose tolerance in mother complicatin g 12/18/2023 Overview (12/18/2023): 1 hour elevated 12/17. Supervision of other normal , antepartu m 08/28/2023 Estimated Date of Delivery Comme nts Yes 02/29/2024 Based on Ultraso und documented as of this encounter (statuses as of 12/29/2023) Immunizations Name Administration Dates Next Due Adenovirus [...] drink = 0.6 oz pur e alcohol) [place] Depression Scale Answer Date Recorded [place] Depression Scale Total 0 08/28/2023 The thought [...] Care Team (Late st Contact Info) Description 01/11/2024 3:00 PM EST Office Visit Gynecology/Obstetrics, [address] [place] [address] Jocy Padilla MD [address] [place] [address] Pending Results Name Type Priority Associated Diagnoses Date /Time GESTATIONAL GLUCOSE TOLERANCE, 3 HOUR Lab Routine Abnormal glucose tolerance in mother complicating 12/29/2023 9:02 AM EST 100-G GESTATIONAL GLUCOSE, FASTING Lab Routine Abnormal glucose tolerance in mother complicating 12/29/2023 9:02 AM EST 100-G GESTATIONAL GLUCOSE, 1 HOUR Lab Routine Abnormal glucose tolerance in mother complicating 12/29/2023 10:08 AM EST 100-G GESTATIONAL GLUCOSE, 2 HOUR Lab Routine Abnormal glucose tolerance in mother complicating 12/29/2023 11:08 AM EST 100-G GESTATIONAL GLUCOSE, 3 HOUR Lab Routine Abnormal glucose tolerance in mother complicating 12/29/2023 12:08 PM EST Health Maintenance Due Date Last Done [...] as of this encounter Visit Diagnoses Diagnosis Abnormal glucose tolerance in mother complicating Abnormal maternal glucose tolerance, complicating , childbirth, or the puerperium, unspecified as to episode of care documented in this encounter
--- OUTSIDE RECORDS SUMMARY | 2024-02-29 08:27 | External Medical Summary | Summary of Care ---
Author Name Unknown Organization [facility] Address [address] [place] [address] Phone [phone] Care Team Providers Care Corporate Treasury Analyst Name Role Phone Unavailable Primary Care Provider Unavailabl e Reason for Visit * Reason Comments Outpatient Testing Encounter Details Date Type Department Care Team (Late st Contact Info) Description 12/15/2023 12:30 PM EDT Laboratory Laboratory, [facility] [address] [place] [phone] [facility], Lab [address] [place] [address] Supervision of other normal , antepartum Allergies No known active allergiesdocumented as of this encounter (statuses as of 12/15/2023) Medications Medication Sig Dispensed Refills Start Date End Date Status DHA 200 MG Oral Capsule (docosahexaenoic Acid) Take 1 Capsule by mouth in the morning. Active documented as of this encounter (statuses as of 12/15/2023) Active Problems Problem Noted Date Diagnosed Date Supervision of other normal , antepartu m 08/28/2023 Estimated Date of Delivery Comme nts Yes 02/29/2024 Based on Ultraso und documented as of this encounter (statuses as of 12/15/2023) Immunizations Name Administration Dates Next Due Adenovirus [...] drink = 0.6 oz pur e alcohol) [place] Depression Scale Answer Date Recorded [place] Depression Scale Total 0 08/28/2023 The thought [...] Care Team (Late st Contact Info) Description 12/15/2023 2:00 PM EDT Office Visit Gynecology/Obstetric [place] [address] [place] [address] [place] [phone] Angela Alex MD [address] [place] [address] 29 weeks gestation of *; Supervision of other normal , antepartum 12/29/2023 8:45 AM EST Office Visit Gynecology/Obstetric [place] [address] [address] Jocy Padilla MD [address] [place] [address] 01/11/2024 3:00 PM EST Office Visit Gynecology/Obstetric [place] [address] [place] [phone] Jocy Padilla MD [address] [place] [address] Pending Results Name Type Priority Associated Diagnoses Date /Time CBC WITH WBC DIFFERENTIAL AND ANEMIA REFLEX WORKUP Lab Routine Supervision of other normal , antepartum 12/15/2023 1:44 PM EDT SYPHILIS ANTIBODY SCREEN WITH REFLEX TO RPR Lab Routine Supervision of other normal , antepartum 12/15/2023 1:44 PM EDT 50-G GESTATIONAL GLUCOSE, 1 HOUR Lab Routine Supervision of other normal , antepartum 12/15/2023 1:44 PM EDT ANEMIA CBC Lab Routine Supervision of other normal , antepartum 12/15/2023 1:44 PM EDT DIFFERENTIAL, AUTOMATED Lab Routine Supervision of other normal , antepartum 12/15/2023 1:44 PM EDT ANEMIA REFLEX CHEMISTRY HOLD Lab Routine Supervision of other normal , antepartum 12/15/2023 1:44 PM EDT SYPHILIS ANTIBODY SCREEN Lab Routine Supervision of other normal , antepartum 12/15/2023 1:44 PM EDT Health Maintenance Due Date Last Done Comments [...] as of this encounter Visit Diagnoses Diagnosis 29 weeks gestation of - Primary state, incidental Supervision of other normal , antepartum Supervision of other normal , antepartum documented in this encounter
--- OUTSIDE RECORDS SUMMARY | 2024-02-29 08:27 | External Medical Summary ---
Author Name Unknown Address Unknown Organization [id number]:[facility]ATORY [facility] [place] [address] [place] [address] Laboratory Report Ordering Provider Test Date Status ANNETTE BOONE 12/15/2023 13:44:20 Final Observation Date Value Abnormality Reference (Units ) Status Treponema pallidum Ab [Presence] in Serum by Immunoassay 12/15/2023 13:44:20 Nonreactive Nonreactive Final No serologic evidence of syp hilis. No additional testing clinicially indicated at this time. Consider repeat testing in 2-4 weeks if acute or primary syphilis is suspected. Performing Location LABORATORY [facility] - [address] [place] [address]
--- OUTSIDE RECORDS SUMMARY | 2024-02-29 08:27 | External Medical Summary ---
Author Name Unknown Address Unknown Organization K01:[facility] [address] [place] [address] Laboratory Report Ordering Provider Test Date Status JEFERSON MONSALVE 02/01/2024 14:01:22 Final Observation Date Value Abnormality Reference (Units ) Status Streptococcus agalactiae DNA [Presence] in Specimen by ADELA with probe detection 02/01/2024 14:01:22 Negative Negative Final No Group B Streptococcus det ected by culture-enhanced PCR (amplified probe). GBS GBSCT - [facility] 02/01/2024 14:01:22 0.0 Final GBS SPCCT - [facility] 02/01/2024 14:01:22 31.3 Final Performing Location [facility] [place] [address] [place] [address]
--- OUTSIDE RECORDS SUMMARY | 2024-02-29 08:27 | External Medical Summary | Summary of Care ---
Author Name Unknown Organization [facility] Address [address] [facility] [place] [address] Phone [phone] Care Team Providers Care Phlebotomist Supervisor/Instructor Name Role Phone Unavailable Primary Care Provider Unavailabl e Reason for Visit * Reason Comments Return Visit [id number] Encounter Details Date Type Department Care Team (Late st Contact Info) Description 12/15/2023 2:00 PM EDT Office Visit Gynecology/Obst[facility] [place] [address] [facility] [place] [address] Angela Alex MD [address] [place] [address] 29 weeks gestation of *; Supervision of other normal , antepartum Allergies [...] drink = 0.6 oz pur e alcohol) [place] Depression Scale Answer Date Recorded [place] Depression Scale Total 0 08/28/2023 The thought [...] Sign Reading Time Taken Comments Blood Pressure 102/60 12/15/2023 1:54 PM EDT Pulse - - Temperature 36.4 C (97.5 F) 12/15/2023 1:54 PM ED T Respiratory Rate - - Oxygen Saturation - - Inhaled Oxygen Concentration - - Weight 64.4 kg (142 lb) 12/15/2023 1:54 PM EDT Height - - Body Mass Index - - documented in this encounter Progress Notes * Angela Alex MD - 12/15/2023 2:00 PM EDT Patient is 28 year old at 29 1/7 weeks who presents for BO visit Denies contractions, leaking of fluid, or vaginal bleeding. Noted good movement Denies headache, blurry vision, RUQ or epigastric pain. 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 She is also [employer]. She would like prescription today for breast pump so she can get through her insurance () Problem list reviewed BP 102/60 | Temp 36.4 C (97.5 F) (Tympanic) | Wt 64.4 kg (142 lb) | LMP 06/01/2023 (Approximate) FH: 28 FHT: 135 Plan: Labor and preeclampsia warnings reviewed Flu vaccine declined RSV vaccine (32-36 07/27) recommended 3tri labs just one today-results pending Breast pump ordered, prescription given to patient RTC 3 weeks V Abi MARINELLI PhD documented in this encounter Nursing Notes * Diane Garcia CMA - 12/15/2023 1:54 PM EDT Chief Complaint Patient presents with Return Visit 29w1d documented in this encounter Plan of Treatment Upcoming Encounters Date Type Department Care Team (Late st Contact Info) Description 12/29/2023 8:45 AM EST Office Visit Gynecology/Obstetrics, [place] [address] [place] [address] Jocy Padilla MD [address] [place] [address] 01/11/2024 3:00 PM EST Office Visit Gynecology/Obstetrics, [place] [address] [place] [address] Jocy Padilla MD [address] [place] [address] Health Maintenance Due Date Last Done Comments [...] incidental Supervision of other normal , antepartum documented in this encounter"
--- OUTSIDE RECORDS SUMMARY | 2024-02-29 08:27 | External Medical Summary ---
Author Name Unknown Address Unknown Organization K01:LABORATORY [facility] - [address] [place] [address] Laboratory Report Ordering Provider Test Date Status ANNETTE BOONE 12/15/2023 13:44:20 Final Observation Date Value Abnormality Reference (Units ) Status Vitamin B12 12/15/2023 13:44:20 250 201-7000 (pg/mL) Final Performing Location LABORATORY [facility] - [address] [facility] [address] [place] [address]
--- OUTSIDE RECORDS SUMMARY | 2024-02-29 08:27 | External Medical Summary ---
Author Name Unknown Address Unknown Organization K01:LABORATORY [facility] [place] [place] - [address] [place] [address] Laboratory Report Ordering Provider Test Date Status ANNETTE BOONE 12/29/2023 11:08:45 Final Observation Date Value Abnormality Reference (Units ) Status Glucose, 2-hr post glucose challenge 12/29/2023 11:08:45 136 70-154 (mg/dL) Final Performing Location LABORATORY [facility] [place] [place] - [address] [place] [address]
--- OUTSIDE RECORDS SUMMARY | 2024-02-29 08:27 | External Medical Summary ---
Author Name Unknown Address Unknown Organization K01:LABORATORY [facility] [place] - [address] [place] [address] Laboratory Report Ordering Provider Test Date Status ANNETTE BOONE 12/15/2023 13:44:20 Final Observation Date Value Abnormality Reference (Units ) Status Ferritin 12/15/2023 13:44:20 16 13-150 (ng /mL) Final Performing Location LABORATORY [facility] - [address] [facility] [address] [place] [address]
--- OUTSIDE RECORDS SUMMARY | 2024-02-29 08:27 | External Medical Summary ---
Author Name Unknown Address Unknown Organization K01:LABORATORY [facility] - [address] [place] [address] Laboratory Report Ordering Provider Test Date Status ANNETTE BOONE 12/15/2023 13:44:20 Final Observation Date Value Abnormality Reference (Units ) Status TSH 12/15/2023 13:44:20 0.99 0.27-4.20 (uIU/mL) Final Performing Location LABORATORY [facility] - [address] [place] [address]
--- OUTSIDE RECORDS SUMMARY | 2024-02-29 08:27 | External Medical Summary ---
Author Name Unknown Address Unknown Organization K01:LABORATORY [facility] - [address] [place] [address] Laboratory Report Ordering Provider Test Date Status ANNETTE BOONE 12/15/2023 13:44:20 Final Observation Date Value Abnormality Reference (Units ) Status SYNC LEUKOCYTES IN BLOOD BY AUTOMATED COUNT 12/15/2023 13:44:20 5.56 4.00-10.80 (K/uL) Final Segs 12/15/2023 13:44:20 72.8 40.0-75.0 (%) Final Lymphs % 12/15/2023 13:44:20 20.7 18.0-42.0 (%) Final Monos 12/15/2023 13:44:20 5.0 1.0-11.0 (%) Final Eosinophils 12/15/2023 13:44:20 0.4 0.0-6.0 (%) Final Basos 12/15/2023 13:44:20 0.4 0.0-2.0 (%) Final Immature Granulocyte, Percent 12/15/2023 13:44:20 0.7 0.0-2.0 (%) Final Absolute Segs 12/15/2023 13:44:20 4.05 1.80-7.70 (K/uL) Final Lymphs, absolute 12/15/2023 13:44:20 1.15 1.00-4.80 (K/ul) Final Monos, Abs 12/15/2023 13:44:20 0.28 0.00-1.10 (K/uL) Final Eos, Abs 12/15/2023 13:44:20 0.02 0.00-0.70 (K/uL) Final Basos, Abs 12/15/2023 13:44:20 0.02 0.00-0.20 (K/uL) Final Immature Granulocytes, Number 12/15/2023 13:44:20 0.04 0.00-0.20 (K/uL) Final Performing Location LABORATORY [facility] - [address] [facility] [address]
--- OUTSIDE RECORDS SUMMARY | 2024-02-29 08:27 | External Medical Summary | Summary of Care ---
Author Name Unknown Organization [facility] Address [address] [place] [address] Phone [phone] Care Team Providers Care Dry Cell Sealer Name Role Phone Unavailable Primary Care Provider Unavailabl e Encounter Details Date Type Department Care Team (Late st Contact Info) Description 12/18/2023 Telephone Gynecology/Obstetrics, [place] [address] [facility] [place] [address] Silvana Edwards PA-C [address] [facility] [place] [address] Allergies No known active allergiesdocumented as of this encounter (statuses as of 12/19/2023) Medications Medication Sig Dispensed Refills Start Date End Date Status DHA 200 MG Oral Capsule (docosahexaenoic Acid) Take 1 Capsule by mouth in the morning. Active Breast Pump For breast feeding mother 1 Each 12/15/2023 Active documented as of this encounter (statuses as of 12/19/2023) Active Problems Problem Noted Date Diagnosed Date Abnormal glucose tolerance in mother complicatin g 12/18/2023 Overview: 1 hour elevated 12/17. Supervision of other normal , antepartu m 08/28/2023 Estimated Date of Delivery Comme nts Yes 02/29/2024 Based on Ultraso und documented as of this encounter (statuses as of 12/19/2023) Immunizations Name Administration Dates Next Due Adenovirus [...] drink = 0.6 oz pur e alcohol) [place] Depression Scale Answer Date Recorded [place] Depression Scale Total 0 08/28/2023 The thought [...] on file documented as of this encounter Miscellaneous Notes * Telephone Encounter - Mildred Fajardo LPN - 12/18/2023 10:40 AM EDT Call to pt, pt informed, gave scheduling number to schedule 3 hour. Pt declines iron supplements atthis time. Encouraged pt to eat foods high in iron and went over risk of low blood counts leading up to delivery and during delivery. Pt expressed understanding. Mildred Fajardo LPN * Telephone Encounter - Mildred Fajardo LPN - 12/18/2023 10:40 AM EDT ----- Message from Silvana Edwards sent at 12/18/2023 8:08 AM EDT ----- Please inform patient her 3rd trimester labs have been reviewed. Her 1 hour GTT was elevated; I have placed an order for a 3 hour. Her CBC demonstrated anemia. Please ask what pharmacy she prefers this sent to. Ensure she is taking this at least 3 hours away from any sources of calcium, on an emptystomach, and with Vitamin C if she is able. This can cause dark stools and/or constipation. I will also send Colace to her pharmacy for relief. We will plan to recheck her labs for improvement in 4 weeks. Her RPR was non-reactive. Thanks! Silvana Edwards PA-C documented in this encounter Plan of Treatment Upcoming Encounters Date Type Department Care Team (Late st Contact Info) Description 12/29/2023 8:45 AM EST Office Visit Gynecology/Obstetrics, [address] [place] [address] Jocy Padilla MD [address] [place] [address] [place] [address] 12/29/2023 9:10 AM EST Laboratory Laboratory, [address] [place] [phone] [facility], Lab [address] [place] [address] [place] [address] 01/11/2024 3:00 PM EST Office Visit Gynecology/Obstetrics, [place] [address] [facility] [place] [address] Jocy Padilla MD [address] [facility] [place] [address] Health Maintenance Due Date Last Done Comments [...]
--- OUTSIDE RECORDS SUMMARY | 2024-02-29 08:27 | External Medical Summary ---
Author Name Unknown Address Unknown Organization [id number]:[facility]ORY [facility] [place] [address] [place] [address] Laboratory Report Ordering Provider Test Date Status ANNETTE BOONE 12/29/2023 09:02:47 Final Based on ACOG guideline, ges tational diabetes mellitus is diagnosed when any of the following is met:
Fasting is greater than or equal to 95 mg/dL
1 hour is greater than or equal to 180 mg/dL
2 hour is greater than or equal to 155 mg/dL
3 hour is greater than or equal to 140 mg/dL Observation Date Value Abnormality Reference (Units ) Status Glucose, fasting 12/29/2023 09:02:47 88 70- 94 (mg/dL) Final Performing Location [facility] [place] [address] [place] [address]
--- OUTSIDE RECORDS SUMMARY | 2024-02-29 08:27 | External Medical Summary | Summary of Care ---
Author Name Unknown Organization [facility] Address [address] [facility] [address] Phone [phone] Care Team Providers Care Marketing Area Manager Name Role Phone Unavailable Primary Care Provider Unavailabl e Reason for Visit * Reason Comments Return Visit 35w0d Encounter Details Date Type Department Care Team (Late st Contact Info) Description 01/25/2024 1:30 PM EST Office [facility] [address] Angela Alex MD [address] [place] [address] 35 weeks gestation of *; Abnormal glucose tolerance in mother complicating ; Supervision of other normal , antepartum Allergies No known active allergiesdocumented as of this encounter (statuses as of 01/25/2024) Medications DHA 200 MG Oral Capsule (docosahexaenoi c Acid) Take 1 Capsule by mouth in the morning. Active Breast Pump For breast feeding mother 1 Each 12/15/2023 Active documented as of this encounter (statuses as of 01/25/2024) Active Problems Problem Noted Date Diagnosed Date Abnormal glucose tolerance in mother complicatin g 12/18/2023 Overview (12/18/2023): 1 hour elevated 12/17. Supervision of other normal , antepartu m 08/28/2023 Estimated Date of Delivery Comme nts Yes 02/29/2024 Based on Ultraso und documented as of this encounter (statuses as of 01/25/2024) Immunizations Name Administration Dates Next Due Adenovirus [...] drink = 0.6 oz pur e alcohol) [place] Depression Scale Answer Date Recorded [place] Depression Scale Total 0 08/28/2023 The thought [...] Reading Time Taken Comments Blood Pressure 100/60 01/25/2024 1:29 PM EST Pulse - - Temperature 36.6 C (97.8 F) 01/25/2024 1:29 PM ES T Respiratory Rate - - Oxygen Saturation - - Inhaled Oxygen Concentration - - Weight 66.5 kg (146 lb 9.6 oz) 01/25/2024 1:29 P M EST Height 154.9 cm (5' 1") 01/25/2024 1:29 PM EST Body Mass Index 27.7 01/25/2024 1:29 PM EST documented in this encounter Progress Notes * Angela Alex MD - 01/25/2024 1:30 PM EST Patient is 28 year old at 35 0/7 weeks who presents for BO visit Denies contractions, leaking of fluid, or vaginal bleeding. Noted good movement Denies headache, blurry vision, RUQ or epigastric pain. +heartburn Patient is planning to deliver at [facility]. However [facility] as it at work and she is worried about [facility] as it is out of network for her insurance Problem list reviewed BP 100/60 | Temp 36.6 C (97.8 F) | Ht 1.549 m (5' 1") | Wt 66.5 kg (146 lb 9.6 oz) | LMP 06/01/2023 (Approximate) | BMI 27.70 kg/m | BSA 1.69 m FH: 34 FHT: 150 Plan: Labor and preeclampsia warnings reviewed Flu vaccine declined RSV vaccine (32-36 6/7) declined RTC 1 week with GBS V Abi MARINELLI PhD documented in this encounter Nursing Notes * Yuli Ford LPN - 01/25/2024 1:31 PM EST Chief Complaint Patient presents with Return Visit 35w0d Pt denied having any concerns at today's visit. Pt reports positive movement. Yuli Ford LPN 01/25/2024 1:32 PM documented in this encounter Plan of Treatment Upcoming Encounters Date Type Department Care Team (Late st Contact Info) Description 02/01/2024 1:30 PM EST Office Visit Gynecology/Obstetrics, [address] [place] [address] Angela Alex MD [address] [place] [address] 02/09/2024 9:00 AM EST Office Visit Gynecology/Obstetrics, [address] [place] [address] Angela Alex MD [address] [place] [address] Health Maintenance Due Date Last Done Comments [...] as of this encounter Visit Diagnoses Diagnosis 35 weeks gestation of - Primary state, incidental Abnormal glucose tolerance in mother complicating Abnormal maternal glucose tolerance, complicating , childbirth, or the puerperium, unspecified as to episode of care Supervision of other normal , antepartum documented in this encounter
--- OUTSIDE RECORDS SUMMARY | 2024-02-29 08:27 | External Medical Summary | Summary of Care ---
Author Name Unknown Organization [facility] Address [address] [facility] [address] Phone [phone] Care Team Providers Care Manager Process Improvement Name Role Phone Unavailable Primary Care Provider Unavailabl e Reason for Visit * Reason Comments Return Visit 33w Encounter Details Date Type Department Care Team (Late st Contact Info) Description 01/11/2024 3:00 PM EST Office Visit Gynecology/Obstetric Moustapha diallown [address] [facility] [place] [address] Jocy Padilla MD [address] [place] [address] 33 weeks gestation of *; Abnormal glucose tolerance in mother complicating Allergies No known active allergiesdocumented as of this encounter (statuses as of 01/11/2024) Medications DHA 200 MG Oral Capsule (docosahexaenoi c Acid) Take 1 Capsule by mouth in the morning. Active Breast Pump For breast feeding mother 1 Each 12/15/2023 Active documented as of this encounter (statuses as of 01/11/2024) Active Problems Problem Noted Date Diagnosed Date Abnormal glucose tolerance in mother complicatin g 12/18/2023 Overview (12/18/2023): 1 hour elevated 12/17. Supervision of other normal , antepartu m 08/28/2023 Estimated Date of Delivery Comme nts Yes 02/29/2024 Based on Ultraso und documented as of this encounter (statuses as of 01/11/2024) Immunizations Name Administration Dates Next Due Adenovirus [...] drink = 0.6 oz pur e alcohol) [place] Depression Scale Answer Date Recorded [place] Depression Scale Total 0 08/28/2023 The thought [...] Sign Reading Time Taken Comments Blood Pressure 92/58 01/11/2024 3:04 PM EST Pulse - - Temperature 36.3 C (97.3 F) 01/11/2024 3:04 PM ES T Respiratory Rate - - Oxygen Saturation - - Inhaled Oxygen Concentration - - Weight 65 kg (143 lb 6.4 oz) 01/11/2024 3:04 PM EST Height - - Body Mass Index - - documented in this encounter Progress Notes * Jocy Padilla MD - 01/11/2024 3:11 PM EST Lokesh Luciano is a 28 year old female here for her routine OB appointment at 33w0d. Patient offers no complaints Her Estimated Date of Delivery: 02/29/24 REVIEW OF SYSTEMS: She affirms movement. Denies vaginal bleeding, LOF, regular contractions, N/V, headaches PHYSICAL EXAM: Filed Vitals: 01/11/24 1504 BP: 92/58 Temp: 36.3 C (97.3 F) Weight: 65 kg (143 lb 6.4 oz) +FHT 157 bpm Fundal height 33 cm ASSESSMENT/PLAN: (O99.810) Abnormal glucose tolerance in mother complicating Plan: 3 hour GTT was within normal limits. (Z3A.33) 33 weeks gestation of (primary encounter diagnosis) Plan: - recommended flu, TDAP and RSV vaccine - patient declined today - labor precautions and kick counts reviewed - RTO in 2 weeks Jocy Padilla MD documented in this encounter Nursing Notes * Mildred Fajardo LPN - 01/11/2024 3:01 PM EST Chief Complaint Patient presents with Return Visit 33w Pt is with no concerns. Declines flu and tdap. RSV declined Mildred Fajardo LPN documented in this encounter Plan of Treatment Upcoming Encounters Date Type Department Care Team (Late st Contact Info) Description 01/25/2024 11:00 AM EST Office Visit Gynecology/Obstetrics, [address] [place] [address] Silvana Edwards PA-C [address] [place] [address] Health Maintenance Due Date Last Done Comments [...] as of this encounter Visit Diagnoses Diagnosis 33 weeks gestation of - Primary state, incidental Abnormal glucose tolerance in mother complicating Abnormal maternal glucose tolerance, complicating , childbirth, or the puerperium, unspecified as to episode of care documented in this encounter
--- OUTSIDE RECORDS SUMMARY | 2024-02-29 08:27 | External Medical Summary ---
Author Name Unknown Address Unknown Organization [id number]:LAB[facility]ATORY [facility] [place] - [facility] [address] [place] [address] Laboratory Report Ordering Provider Test Date Status ANNETTE BOONE 12/15/2023 13:44:20 Final Observation Date Value Abnormality Reference (Units ) Status Retic, % (auto) 12/15/2023 13:44:20 2.44 Above high normal 0.80-1.90 (%) Final Reticulocytes, Absolute 12/15/2023 13:44:20 89.3 31.3-100.1 (K/uL) Final Reticulocyte fraction, immature 12/15/2023 13:44:20 15.4 2.5-20.6 (%) Final Reticulocyte HGB 12/15/2023 13:44:20 35.8 29.7-37.4 (pg) Final Performing Location [facility]ATORY [facility] [place] - [address] [place] [address]
--- OUTSIDE RECORDS SUMMARY | 2024-02-29 08:27 | External Medical Summary ---
Author Name Unknown Address Unknown Organization K01:LABORATORY [facility] - [address] [place] [address] Laboratory Report Ordering Provider Test Date Status ANNETTE BOONE 12/29/2023 12:08:44 Final Observation Date Value Abnormality Reference (Units ) Status Glucose [Mass/volume] in Serum or Plasma --3 hours post dose glucose 12/29/2023 12:08:44 134 70-139 (mg/dL) Final Performing Location LABORATORY [facility] - [address] [place] [address]
--- OUTSIDE RECORDS SUMMARY | 2024-02-29 08:27 | External Medical Summary | Summary of Care ---
Author Name Unknown Organization [facility] Address [address] [facility] [place] [address] Phone [phone] Care Team Providers Care Passport Support Associate Name Role Phone Unavailable Primary Care Provider Unavailabl e Reason for Visit * Reason Comments Return Visit 31w1d Encounter Details Date Type Department Care Team (Late st Contact Info) Description 12/29/2023 8:45 AM EST Office [facility] [address] [facility] [address] Jocy Padilla MD [address] [place] [address] 31 weeks gestation of *; Abnormal glucose tolerance [...] drink = 0.6 oz pur e alcohol) [place] Depression Scale Answer Date Recorded [place] Depression Scale Total 0 08/28/2023 The thought [...] Sign Reading Time Taken Comments Blood Pressure 96/56 12/29/2023 8:54 AM EST Pulse - - Temperature 36.2 C (97.2 F) 12/29/2023 8:54 AM ES T Respiratory Rate - - Oxygen Saturation - - Inhaled Oxygen Concentration - - Weight 64.3 kg (141 lb 12.8 oz) 12/29/2023 8:54 AM EST Height - - Body Mass Index - - documented in this encounter Progress Notes * Jocy Padilla MD - 12/29/2023 8:53 AM EST Lokesh Luciano is a 28 year old female here for her routine OB appointment at 31w1d. Patient offers no complaints. She is doing her 3 hour GTT test today Her Estimated Date of Delivery: 02/29/24 REVIEW OF SYSTEMS: She affirms movement. Denies vaginal bleeding, LOF, N/V, headaches PHYSICAL EXAM: BP 96/56 | Temp 36.2 C (97.2 F) | Wt 64.3 kg (141 lb 12.8 oz) | LMP 06/01/2023 (Approximate) +FHT 129 bpm Fundal height 30 cm ASSESSMENT/PLAN: (O99.810) Abnormal glucose tolerance in mother complicating Plan: Patient is doing her 3 hour GTT. (Z3A.31) 31 weeks gestation of (primary encounter diagnosis) Plan: - patient was given a signed form for breast pump. - recommended flu, TDAP and RSV vaccine - patient declined today - labor precautions and kick counts reviewed - RTO in 2 weeks Jocy Padilla MD documented in this encounter Nursing Notes * Mildred Fajardo LPN - 12/29/2023 8:43 AM EST Chief Complaint Patient presents with Return Visit 31w1d Pt is with no concerns. Declined tdap and flu. Mildred Fajardo LPN documented in this encounter Plan of Treatment Upcoming Encounters Date Type Department Care Team (Late st Contact Info) Description 01/11/2024 3:00 PM EST Office Visit Gynecology/Obstetrics, [place] [place] [address] Jocy Padilla MD 132 [facility] [place] [address] Health Maintenance Due Date Last Done Comments [...] as of this encounter Visit Diagnoses Diagnosis 31 weeks gestation of - Primary state, incidental Abnormal glucose tolerance in mother complicating Abnormal maternal glucose tolerance, complicating , childbirth, or the puerperium, unspecified as to episode of care documented in this encounter"
--- OUTSIDE RECORDS SUMMARY | 2024-02-29 08:27 | External Medical Summary ---
Author Name Unknown Address Unknown Organization K01:LAB[facility]ATORY [facility] [place] - [facility] [address] [place] [address] Laboratory Report Ordering Provider Test Date Status ANNETTE BOONE 12/15/2023 13:44:20 Final Observation Date Value Abnormality Reference (Units ) Status WBC, Total 12/15/2023 13:44:20 5.56 4.00-10.8 0 (K/uL) Final RBC 12/15/2023 13:44:20 3.67 3.85-5.15 (M/uL) Final Hemoglobin 12/15/2023 13:44:20 11.8 Below low normal 12 .0-15.3 (g/dL) Final Anemia reflex testing trigge rs on a HGB < 12.0 for Females and HGB < 13.0 for Males in accordance with the WHO Anemia Guidelines
Anemia reflex testing triggers on a HGB < 12.0 for Females and HGB < 13.0 for Males in accordance with the WHO Anemia Guidelines HCT 12/15/2023 13:44:20 35.8 Below low normal 36. 0-45.2 (%) Final MCV 12/15/2023 13:44:20 97.5 81.5-97.5 (fL) Final MCH 12/15/2023 13:44:20 32.2 27.0-34.0 (pg) Final MCHC 12/15/2023 13:44:20 33.0 32.0-36.0 (g/dL) Final RDW 12/15/2023 13:44:20 12.7 11.5-15.5 (%) Final Platelets 12/15/2023 13:44:20 165 140-400 (K /uL) Final MPV 12/15/2023 13:44:20 11.2 6.6-11.1 ( fL) Final Nucleated erythrocytes/100 leukocytes [Ratio] in Blood by Automated count 12/15/2023 13:44:20 0 <=0 (/100 WBCs) Final Performing Location LABORATORY [facility] [place] - [address] [facility] [address]
--- OUTSIDE RECORDS SUMMARY | 2024-02-29 08:27 | External Medical Summary ---
Author Name Unknown Address Unknown Organization K01:LABORATORY [facility] [place] - [address] [place] [address] Laboratory Report Ordering Provider Test Date Status ANNETTE BOONE 12/15/2023 13:44:20 Final Observation Date Value Abnormality Reference (Units ) Status Creatinine 12/15/2023 13:44:20 0.5 0.5-1.0 (mg/dL) Final Glomerular filtration rate/1.73 sq M.predicted [Volume Rate/Area] in Serum, Plasma or Blood by Creatinine-based formula (CKD-EPI) 12/15/2023 13:44:20 >90 >=60 (mL/min) Final eGFR is calculated based on the CKD-EPI 2020 equation. Performing Location LABORATORY [facility] [place] - [address] [place] [address]
--- OUTSIDE RECORDS SUMMARY | 2024-02-29 08:28 | External Medical Summary ---
Author Name Unknown Address Unknown Organization : Laboratory Report Ordering Provider Test Date Status MÓNICA GODDARD 09/27/2023 14:43:21 Final Observation Date Value Abnormality Reference (Units ) Status NUMBER OF FETUSES? 09/27/2023 14:43:21 1 Final ADVANCED MATERNAL AGE? 09/27/2023 14:43:21 NO Final ABNORMAL TOMASA? 09/27/2023 14:43:21 NO Final ABNORMAL US? 09/27/2023 14:43:21 NOT GIVEN Final PERSONAL/FAM HISTORY? 09/27/2023 14:43:21 NOT GIVEN Final INTERPRETATION 09/27/2023 14:43:21 SEE BELOW Final This specimen showed an expe cted representation of
chromosome 21, 18, and 13 material. Results were
not analyzed or reported for microdeletions. See
'Limitations' below. TRISOMY 21 (T21) 09/27/2023 14:43:21 Negative Final TRISOMY 18 (T18) 09/27/2023 14:43:21 Negative Final TRISOMY 13 (T13) 09/27/2023 14:43:21 Negative Final Y CHROMOSOME 09/27/2023 14:43:21 Not detected Final Y CHR. INTERPRETATION 09/27/2023 14:43:21 SEE BELOW Final Consistent with a female fet us. SEX CHROMOSOME 09/27/2023 14:43:21 No aneuploidy Final SEX CHROMOSOME INTERP 09/27/2023 14:43:21 SEE BELOW Final No apparent abnormality was detected. See
'Limitations' below. MICRODELETION 09/27/2023 14:43:21 Opted Out Final MICRODELETION INTERP 09/27/2023 14:43:21 SEE BELOW Final Results were not analyzed or reported for
microdeletions. GESTATIONAL AGE (IN WEEKS) 09/27/2023 14:43:21 17 Final GESTATIONAL AGE (IN DAYS) 09/27/2023 14:43:21 6 Final FRACTION 09/27/2023 14:43:21 11.00% Final LABORATORY COMMENTS 09/27/2023 14:43:21 SEE BELOW Final Laboratory testing supervise d and results
monitored by Glenn Mares, Ph.D., FAC, [facility],
[facility]. LIMITATIONS 09/27/2023 14:43:21 SEE BELOW Final QNatal(R) Advanced is a cell -free DNA screening
test that screens for increased risk of certain
chromosomal abnormalities that may cause
defects, including Trisomy 21 (Down
syndrome), Trisomy 18, Trisomy 13, and certain sex
chromosome abnormalities (i.e., 45,X, 47,XXY,
47,XXX, and 47,XYY), as well as sex. In
addition, if selected as an option, QNatal(R)
Advanced can screen for certain microdeletions
(i.e., 22q, 5p, 1p36, 15q, 11q, 8q, and 4p) that
may cause defects. This test does not assess
the risk of abnormalities such as neural
tube defects or ventral wall defects and should
not be considered in isolation from other clinical
findings and laboratory test results.
QNatal(R) Advanced has been validated in mahajan
pregnancies for the trisomies and sex chromosome
abnormalities listed above, as well as for
microdeletions, and for the determination of
sex. Sex chromosome aneuploidy analysis is only
performed in mahajan pregnancies. This screening
test has also been validated in twin pregnancies
for the trisomies listed above and for
microdeletions, but not for the sex chromosome
abnormalities due to limited data. This screening
test has not been validated in higher order
pregnancies (more than two) because limited data
is available. Sex chromosomal aneuploidy results
issued for pregnancies confirmed to be of multiple
gestations are not valid and should be
disregarded.
Microdeletion screening is limited to the
specified microdeletion regions (see
'Methodology'). The Y chromosome is analyzed for
the determination of sex. The sensitivity
and specificity of sex determination
analysis may be less than that of the Trisomy 21,
18, and 13 analysis and this determination can be
confounded by vanishing twin syndrome in
pregnancies that were originally multiple
gestation pregnancies. It should be noted that
QNatal(R) Advanced is a quantitative analysis of
maternal and placental cfDNA. As a result, the
accuracy of screening results may be affected by
the presence of chromosome abnormalities or
microdeletions that are maternal or confined
placental in origin. SPECIFICATIONS 09/27/2023 14:43:21 SEE BELOW Final Sensitivity Specificity
T21 >99.9% >99.9%
T18 >99.9% >99.9%
T13 >99.9% >99.9%
Accuracy
Y >99.9%
Performance of the QNatal Advanced
laboratory-developed test (LDT) has been
determined based on internal analytical
assessment. METHODOLOGY 09/27/2023 14:43:21 SEE BELOW Final Circulating cell-free (cf) D NA was isolated from
plasma followed by detection on a massively
parallel sequencing platform. Bioinformatic
analysis was performed to determine the
representation of chromosomes 21, 18, 13, X and Y
in circulating cell-free DNA. The representation
of sequences from the critical regions involved in
1p36 microdeletion syndrome (1p36),
Marin-Hirschhorn syndrome (4p), Cri-du-chat
syndrome (5p), Margaret-Giedion syndrome (8q),
Cinthya syndrome (11q), Prader Willi
syndrome/Angelman syndrome (15q), and DiGeorge
syndrome (22q) is evaluated for the detection of
microdeletions if requested. Performance
characteristics refer to the analytical
performance of this screening test. This screening
test is performed pursuant to a license agreement
with [employer].
QNatal Advanced is a laboratory developed test
that has been developed and validated, pursuant to
the Clinical Laboratory Improvements Amendments of
1988 (CLIA), and as such it has not been reviewed
by FDA.
Test performed by [facility]
[address],
[place] [address]

Supervisor Cook House: Beatrice Kelly MD,PHD,BENJAMIN
Test Reported by [facility],
[facility],
[address] [place], [place]
Mert Newell M.D., Ph.D., Director of Laboratories
, CLIA [id number] Performing Location
--- OUTSIDE RECORDS SUMMARY | 2024-02-29 08:28 | External Medical Summary ---
Author Name Unknown Address Unknown Organization K01:LABORATORY [facility] [place] - [address] [facility] [address] Laboratory Report Ordering Provider Test Date Status ANNETTE BOONE 12/15/2023 13:44:20 Final Observation Date Value Abnormality Reference (Units ) Status Iron 12/15/2023 13:44:20 94 33-151 (ug/dL) Final Iron-binding capacity 12/15/2023 13:44:20 430 Above high normal 250-425 (ug/dL) Final Transferrin Sat % 12/15/2023 13:44:20 22 15-55 (%) Final Performing Location LAB[facility]ATORY [facility] [place] [facility] [address] [facility] [address]
--- OUTSIDE RECORDS SUMMARY | 2024-02-29 08:28 | External Medical Summary | Summary of Care ---
Author Name Unknown Organization [facility] Address [address] [place] [address] Phone [phone] Care Team Providers Care Knocker Out Name Role Phone Unavailable Primary Care Provider Unavailabl e Reason for Visit * Reason Comments Outpatient Testing Encounter Details Date Type Department Care Team (Late st Contact Info) Description 09/27/2023 2:40 PM EDT Laboratory Laboratory, [facility] [address] [place] [id number] [facility], Lab [address] [place] [address] Supervision of other normal , antepartum; 17 weeks gestation of Allergies No known active allergiesdocumented as of this encounter (statuses as of 09/27/2023) Medications Medication Sig Dispensed Refills Start Date End Date Status DHA 200 MG Oral Capsule (docosahexaenoic Acid) Take 1 Capsule by mouth in the morning. Active documented as of this encounter (statuses as of 09/27/2023) Active Problems Problem Noted Date Diagnosed Date Supervision of other normal , antepartu m 08/28/2023 Estimated Date of Delivery Comme nts Yes 02/29/2024 Based on Ultraso und documented as of this encounter (statuses as of 09/27/2023) Immunizations Name Administration Dates Next Due Adenovirus [...] Vaccine ([place]) 08/03/2007 PPD 12/12/2022,01/03/2020 Seasonal Influenza Virus Vac cine, Unspecified Formulation 12/17/2020,12/13/2019,12/02/2013,02/09,02/02/2010 Seasonal Influenza, Split, I IV3, No Preserve, Inj 12/11/2015,12/02/2014 Seasonal Influenza, Split, I IV3, With Preserve, Inj 12/17/2020,10/19/2018,11/21/2017 TDAP (age 10 and older)(Boostrix) 10/17/2014 TDAP, Age 7 and older, IM (Adacel) 05/08/2012 Varicella Vaccine (Chicken Pox) 08/03/2007,11/03 documented as of this encounter Social History Tobacco Use Types Packs/Day Years Used Date Smoking Tobacco: Never Smokeless Tobacco: Never Alcohol Use Standard Drinks/Week Comments Not Currently 0 (1 standard drink = 0.6 oz pur e alcohol) [place] Depression Scale Answer Date Recorded [place] Depression Scale Total 0 08/28/2023 The thought [...] Care Team (Late st Contact Info) Description 10/16/2023 1:45 PM EDT Imaging Radiology, [place] [address] [place] [id number] 10/25/2023 3:30 PM EDT Office Visit Gynecology/Obstetrics, [place] [address] [place] [address] Silvana Edwards PA-C [address] [address] Pending Results Name Type Priority Associated Diagnoses Date /Time QNATAL ADVANCED (QUEST) Lab Routine Supervision of other normal , antepartum 17 weeks gestation of 09/27/2023 2:43 PM EDT Health Maintenance Due Date Last Done Comments Depression Screening 2008 COVID-19 Vaccine ( season) 2022 12/13/2020, 11/08/2020 Influenza Vaccine (FLU shot) (#1) 2023 12/17/2020, 12/17/2020, 12/13/2019, Additional history exists DTaP,Tdap,and Td Vaccines (8 - Td or Tdap) 10/17/2024 [...] Diagnoses Diagnosis Supervision of other normal , antepartum 17 weeks gestation of state, incidental documented in this encounter
--- OUTSIDE RECORDS SUMMARY | 2024-02-29 08:28 | External Medical Summary | Summary of Care ---
Author Name Unknown Organization [facility] [address] [facility] [address] Phone [phone] Care Team Providers Care Artillery Officer Name Role Phone Unavailable Primary Care Provider Unavailabl e Reason for Visit * Reason Comments Return Visit 25w6d Encounter Details Date Type Department Care Team (Late st Contact Info) Description 11/22/2023 3:30 PM EDT Office [facility] [address] Silvana Edwards PA-C 400 [place] [address] Supervision of other normal , antepartum* Allergies No known active allergiesdocumented as of this encounter (statuses as of 11/22/2023) Medications Medication Sig Dispensed Refills Start Date End Date Status DHA 200 MG Oral Capsule (docosahexaenoic Acid) Take 1 Capsule by mouth in the morning. Active documented as of this encounter (statuses as of 11/22/2023) Active Problems Problem Noted Date Diagnosed Date Supervision of other normal , antepartu m 08/28/2023 Estimated Date of Delivery Comme nts Yes 02/29/2024 Based on Ultraso und documented as of this encounter (statuses as of 11/22/2023) Immunizations Name Administration Dates Next Due Adenovirus [...] drink = 0.6 oz pur e alcohol) [place] Depression Scale Answer Date Recorded [place] Depression Scale Total 0 08/28/2023 The thought [...] documented in this encounter Progress Notes * Silvana Edwards PA-C - 11/22/2023 3:30 PM EDT Lokesh Luciano is a 28 year old female here for her routine OB appointment at 25w6d Her Estimated Date of Delivery: 02/29/24 Patient reporting she is feeling good movement, but seems to be lower than in previous . She also inquires about delivering in [facility] versus at [facility] and what the process would be to schedule delivery there. She desires [facility] delivery as it [...] LOF. - discussed that we would call [facility] later in to schedule delivery in [place] similar to how she would be scheduled here. Did caution that scheduling IOL at [facility] would be at the [facility], specifically if there is not a medical indication to do so. Can discuss further at subsequent BO visits. Plan to start 2 week BO appointments now to keep on schedule. Patient prefers to be seen in 3 weeks. Will schedule BO for 3 weeks. Silvana Edwards PA-C 11/22/2023 documented in this encounter Nursing Notes * Jennifer Bueno CMA - 11/22/2023 3:22 PM EDT Chief Complaint Patient presents with Return Visit 25w6d Pt states she has felt a lot of kicks very low with this and wondering if this is appropriate. Jennifer Bueno CMA 11/22/2023 3:24 PM documented in this encounter Plan of Treatment Upcoming Encounters Date Type Department Care Team (Late st Contact Info) Description 12/15/2023 2:00 PM EDT Office Visit Gynecology/Obstetrics, [address] [place] [address] Angela Alex MD [address] [place] [address] 12/29/2023 8:45 AM EST Office Visit Gynecology/Obstetrics, [address] [place] [address] Jocy Padilla MD [address] [place] [address] 01/11/2024 3:00 PM EST Office Visit Gynecology/Obstetrics, [address] [place] [address] Jocy Padilla MD [address] [place] [address] [place] [address] Scheduled Orders Name Type Priority Associated Diagnoses Orde r Schedule CBC WITH WBC DIFFERENTIAL AND ANEMIA REFLEX WORKUP Lab Routine Supervision of other normal , antepartum Expected: 11/22/2023, Expires: 11/21/2024 SYPHILIS ANTIBODY SCREEN WITH REFLEX TO RPR Lab Routine Supervision of other normal , antepartum Expected: 12/06/2023, Expires: 11/21/2024 50-G GESTATIONAL GLUCOSE, 1 HOUR Lab Routine Supervision of other normal , antepartum Expected: 12/06/2023 (Approximate), Expires: 11/21/2024 Health Maintenance Due Date Last Done Comments [...] Supervision of other normal , antepartum- Primary documented in this encounter
--- OUTSIDE RECORDS SUMMARY | 2024-02-29 08:28 | External Medical Summary | Summary of Care ---
Author Name Unknown Organization [facility] Address [address] [facility] [address] Phone [phone] Care Team Providers Care Pin Pusher Name Role Phone Unavailable Primary Care Provider Unavailabl e Reason for Visit * Reason Comments Return Visit 17w 6d Encounter Details Date Type Department Care Team (Late st Contact Info) Description 09/27/2023 2:00 PM EDT Office Visit Gynecology/Obstetric Lori diallo [address] [place] [address] Leanne Liang MD 400 [facility] [place] [address] Supervision of other normal , antepartum*; 17 weeks gestation of Allergies No known [...] drink = 0.6 oz pur e alcohol) [place] Depression Scale Answer Date Recorded [place] Depression Scale Total 0 08/28/2023 The thought [...] Sign Reading Time Taken Comments Blood Pressure 94/60 09/27/2023 1:58 PM EDT Pulse - - Temperature - - Respiratory Rate - - Oxygen Saturation - - Inhaled Oxygen Concentration - - Weight 57.3 kg (126 lb 6.4 oz) 09/27/2023 1:58 P M EDT Height - - Body Mass Index - - documented in this encounter Progress Notes * Leanne Liang MD - 09/27/2023 2:33 PM EDT I attest that I have reviewed the student note and that the components of the history, the physicalexam, and the assessment and plan documented were performed in my presence with the student where Iverified the documentation and performed (or re-performed) the exam and medical decision making. Pt confirmed that NIPT testing is covered. Pt declines gender testing. Will order qnatal and msafp.Anatomy scan next visit. documented in this encounter Nursing Notes * Paradise Quintana LPN - 09/27/2023 2:00 PM EDT Chief Complaint Patient presents with Return Visit 17w 6d Denies concerns today documented in this encounter Plan of Treatment Upcoming Encounters Date Type Department Care Team (Late st Contact Info) Description 10/16/2023 1:45 PM EDT Imaging Radiology, [place] [address] [place] [phone] 10/25/2023 3:30 PM EDT Office Visit Gynecology/Obstetrics, [place] [address] [place] [address] Silvana Edwards PA-C [address] [place] [address] Pending Results Name Type Priority Associated Diagnoses Date /Time QNATAL ADVANCED (QUEST) Lab Routine Supervision of other normal , antepartum 17 weeks gestation of 09/27/2023 2:43 PM EDT MATERNAL SERUM AFP Lab Routine Supervision of other normal , antepartum 17 weeks gestation of 09/27/2023 2:43 PM EDT Scheduled Orders Name Type Priority Associated Diagnoses Orde r Schedule US PREG SINGLE/1ST GEST, 14 WEEKS OR LATER Medical Imaging Routine Supervision of other normal , antepartum 17 weeks gestation of Expected: 10/11/2023 (Approximate), Expires: 10/27/2024 QNATAL ADVANCED (QUEST) Lab Routine Supervision of other normal , antepartum 17 weeks gestation of Expected: 09/27/2023, Expires: 09/26/2024 Health Maintenance Due Date Last Done Comments [...] Supervision of other normal , antepartum- Primary 17 weeks gestation of state, incidental documented in this encounter
--- OUTSIDE RECORDS SUMMARY | 2024-02-29 08:28 | External Medical Summary | Summary of Care ---
Author Name Unknown Organization [facility] Address [address] [place] [facility] [place] [place] [address] Phone [phone] Care Team Providers Care Fire Medic Name Role Phone Unavailable Primary Care Provider Unavailabl e Encounter Details Date Type Department Care Team (Late st Contact Info) Description 09/04/2023 Telephone Gynecology/Obstetrics, [place] 400 [place] [address] Audra Acuña [facility] 400 [place] [address] Allergies No known active allergiesdocumented as of this encounter (statuses as of 09/04/2023) Medications Medication Sig Dispensed Refills Start Date End Date Status DHA 200 MG Oral Capsule (docosahexaenoic Acid) Take 1 Capsule by mouth in the morning. Active documented as of this encounter (statuses as of 09/04/2023) Active Problems Problem Noted Date Diagnosed Date Supervision of other normal , antepartu m 08/28/2023 Estimated Date of Delivery Comme nts Yes 02/29/2024 Based on Ultraso und documented as of this encounter (statuses as of 09/04/2023) Immunizations Name Administration Dates Next Due Adenovirus [...] drink = 0.6 oz pur e alcohol) [facility] Depression Scale Answer Date Recorded [place] Depression Scale Total 0 08/28/2023 The thought [...] encounter Miscellaneous Notes * Telephone Encounter - Lexy Mauro RN - 09/04/2023 8:54 AM EDT Printed and placed at assistant front desk manager for pick pulling machine operator * Telephone Encounter - Tova Brar RN - 09/04/2023 8:37 AM EDT T/C from pt requesting NOB lab results to be printed out for her to pick pulling machine operator. States she needs the results to include the ordering provider's name for insurance/employment requirements. The barry does not include that information on the results. Pt was seen in [facility] office, but would like to pick them up at the [place] office if possible. Please print results and place at assistant front desk manager for pt to pick pulling machine operator. documented in this encounter Plan of Treatment Upcoming Encounters Date Type Department Care Team (Late st Contact Info) Description 09/27/2023 2:00 PM EDT Office Visit Gynecology/Obstetrics, [place] [address] [place] [address] Leanne Liang MD [address] [place] [address] Health Maintenance Due Date Last Done Comments Depression Screening 2008 Pap Smear 2017 COVID-19 Vaccine ( season) 2022 12/13/2020, 11/08/2020 Influenza Vaccine (FLU shot) (#1) 2023 12/17/2020, 12/17/2020, 12/13/2019, Additional history exists DTaP,Tdap,and Td Vaccines (8 - Td or Tdap) 10/17/2024 10/17/2014, 05/08/2012, 06/09/2007, Additional history exists HPV (Gardasil) Vaccine Completed 9, 11/28/2007, 08/03/2007 [...]
--- OUTSIDE RECORDS SUMMARY | 2024-02-29 08:28 | External Medical Summary | Summary of Care ---
Author Name Unknown Organization [facility] Address [address] [facility] [address] Phone [phone] Care Team Providers Care Carpet Journeyman Name Role Phone Unavailable Primary Care Provider Unavailabl e Reason for Visit * Reason Onset Date Comments Order Request 08/08/2023 Dating ultrasoun d Encounter Details Date Type Department Care Team (Late st Contact Info) Description 08/08/2023 Telephone Radiology, [address] [place] [address] Audra Acuña, [facility] 400 [place] [phone] Order Request (Dating ultrasound ) Allergies No known active allergiesdocumented as of this encounter (statuses as of 11/07/2023) Medications No known medicationsdocumented as of this encounter (statuses as of 11/07/2023) Active Problems Problem Noted Date Diagnosed Date Supervision of other normal , antepartu m 08/28/2023 documented as of this encounter (statuses as of 11/07/2023) Immunizations Name Administration Dates Next Due Adenovirus [...] Influenza, Trivalen t, (IIV3), PF, (Fluzone) 12/11/2015,12/02/2014 Seasonal Influenza, Trivalen t, (IIV3), with Preserv, (Fluzone) 12/17/2020,10/19/2018,11/21/2017 TDAP (age 10 and older)(Boostrix) 10/17/2014 TDAP, Age 7 and older, IM (Adacel) 05/08/2012 Varicella Vaccine (Chicken Pox) 08/03/2007,11/03 documented as of this encounter Social History Tobacco Use Types Packs/Day Years Used Date Smoking Tobacco: Never Assessed [place] Depression Scale Answer Date Recorded [place] Depression Scale Total 0 08/28/2023 The thought [...] years and over) Not on file 08/08/2023 Sex and Gender Information Value Date Recorded Sex Assigned at Not on file Gender Identity Not on file Sexual Orientation Not on file Job Start Date Occupation Industry Not on file Not on file Not on file documented as of this encounter Miscellaneous Notes * Telephone Encounter - Flor Jose MD - 08/08/2023 3:49 PM EDT I signed the pended ultrasound order * Telephone Encounter - Tova Brar RN - 08/08/2023 3:23 PM EDT Please sign pended US order. Pt is scheduled for NOB and dating US appts. documented in this encounter Plan of Treatment Upcoming Encounters Date Type Department Care Team (Late st Contact Info) Description 11/22/2023 3:30 PM EDT Office Visit Gynecology/Obstetrics, [place] [address] [place] [address] Silvana Edwards PA-C [address] [place] [phone] Health Maintenance Due Date Last Done Comments [...] of this encounter Results * US PREG SINGLE/1ST GEST, LESS THAN 14 WKS (08/18/2023 3:34 PM EDT) Anatomical Region Laterality Modality Pelvis, Body Ultrasound 08/18/2023 3:45 PM EDT Impressions 08/18/2023 3:42 PM EDT IMPRESSION: Single intrauterine gestation with FRANKY of 02/29/2024 based upon current mean crown-rump length. Probable uterine leiomyoma/fibroid. Narrative 08/18/2023 3:42 PM EDT EXAM: US PREG SINGLE/1ST GEST, LESS THAN 14 WKS HISTORY: Dating TECHNIQUE: Real-time scanning performed transabdominally COMPARISON: None available FINDINGS: Patient's last menstrual period date unknown. Uterus is enlarged and contains a structure indicative of gestational sac. Yolk sac is not identified. An embryo is seen with a mean crown-rump length of 55 mm corresponding to mean menstrual age 12 weeks 1 day + or minus 6 days. This yields an FRANKY of 02/29/2024. Positive heart motion is seen with a current documented rate of 171 beats per minute. In the posterior body of the uterus posterior to the gestational sac is an ovoid to elliptical hypoechoic solid area nonspecific but ultrasonographically compatible with leiomyoma/fibroid. This measures approximally 1.7 cm x 1.3 cm x 1.5 cm. Right ovary: 2.2 cm x 2.3 cm x 1.8 cm corresponding to volume approximately 5 cc. Left ovary: 2.8 cm x 1.7 cm x 2.8 cm corresponding to volume approximately 7 cc. There is no adnexal mass or cul-de-sac fluid. Procedure Note Delta Betancourt MD - 08/18/2023 EXAM: US PREG SINGLE/1ST GEST, LESS THAN 14 WKS HISTORY: Dating TECHNIQUE: Real-time scanning performed transabdominally COMPARISON: None available FINDINGS: Patient's last menstrual period date unknown. Uterus is enlarged and contains a structure indicative of gestational sac.Yolk sac is not identified. An embryo is seen with a mean crown-rumplength of 55 mm corresponding to mean menstrual age 12 weeks 1 day + orminus 6 days. This yields an FRANKY of 02/29/2024. Positive heart motion is seen with a current documented rate of 171beats per minute. In the posterior body of the uterus posterior to the gestational sac is anovoid to elliptical hypoechoic solid area nonspecific butultrasonographically compatible with leiomyoma/fibroid. This measuresapproximally 1.7 cm x 1.3 cm x 1.5 cm. Right ovary: 2.2 cm x 2.3 cm x 1.8 cm corresponding to volumeapproximately 5 cc. Left ovary: 2.8 cm x 1.7 cm x 2.8 cm corresponding to volume approximately7 cc. There is no adnexal mass or cul-de-sac fluid. IMPRESSION IMPRESSION: Single intrauterine gestation with FRANKY of 02/29/2024 based upon currentmean crown-rump length. Probable uterine leiomyoma/fibroid. Flor Jose MD RAD ULTRASOUND documented in this encounter Visit Diagnoses Diagnosis Early stage of - Primary Early stage of documented in this encounter
--- OUTSIDE RECORDS SUMMARY | 2024-02-29 08:28 | External Medical Summary ---
Author Name Unknown Address Unknown Organization : Laboratory Report Ordering Provider Test Date Status MÓNICA GODDARD 09/27/2023 14:43:21 Final Observation Date Value Abnormality Reference (Units ) Status INTERPRETATION 09/27/2023 14:43:21 SEE BELOW Final Screen negative for open NTD . RISK FOR ONTD 09/27/2023 14:43:21 <1:5000 Final CALC'D GESTATIONAL AGE 0809/27/2023 14:43:21 17.9 Final AFP, SERUM 09/27/2023 14:43:21 31.0 (ng/mL) Final AFP MOM 09/27/2023 14:43:21 0.63 Final Reference Range:
NTD <2 .50
IDD <1.90
TWINS <4.00
TWINS IDD <3.50
TRIPLETS <4.50
The AFP test result indicates that this patient is
screen negative for open NTD. It should be noted
that normal test results can never guarantee the
of a normal baby and that 2-3% of newborns
have some type of physical or mental defect, many
of which are undetectable through any known
diagnostic technique.
This is a screening test, not a diagnostic test.
This risk assessment report is based in part on
demographic data provided by the ordering
physician. Please notify the laboratory promptly
if any data are incorrect. For assistance with
recalculations, please call your local [facility] laboratory. For assistance with
interpretation of these results, please contact
your Local [facility] genetic counselor or
call [phone] ([phone]).
Interpretive Cutoffs
Screen Positive for Open NTD:
> or = 2.50 adjusted MOM
> or = 1.90 adjusted MOM for insulin- dependent diabetics
> or = 4.00 adjusted MOM for twins
> or = 3.50 adjusted MOM for twins insulin-dependent diabetics
> or = 4.50 adjusted MOM for triplets
For additional information, please refer to
[email or web address].ezeep/faq/[email or web address]
(This link is being provided for
informational/educational purposes only.) DATE OF 09/27/2023 14:43:21 1995 Final COLLECTION DATE 09/27/2023 14:43:21 09/27/2023 Final MATERNAL WEIGHT 09/27/2023 14:43:21 126 (lbs ) Final EST'D DATE OF DELIVERY 09/27/2023 14:43:21 02/29/2024 Final FRANKY DETERMINED BY 09/27/2023 14:43:21 NG Final MOTHER'S ETHNIC ORIGIN 09/27/2023 14:43:21 WHITE Final NUMBER OF FETUSES 09/27/2023 14:43:21 1 Final INSULIN DEPEND DIABETIC 09/27/2023 14:43:21 NO Final REPEAT SPECIMEN 09/27/2023 14:43:21 NO Final HX OF NEURAL TUBE DEFECTS 09/27/2023 14:43:21 NO Final PREV DOWN SYND 09/27/2023 14:43:21 NO Final DONOR EGG 09/27/2023 14:43:21 NO Final DONOR AGE: EGG RETRIEVAL 09/27/2023 14:43:21 NOT GIVEN Final Test performed by [facility]
[address],
[place] [address]

Spray Drier Operator: Beatrice Kelly MD,PHD,BENJAMIN
Test Reported by Radha Leo,
[facility],
[address] [place], [place]
Mert Newell M.D., Ph.D., Director of Laboratories
, [facility] [id number] Performing Location
--- OUTSIDE RECORDS SUMMARY | 2024-02-29 08:28 | External Medical Summary | Summary of Care ---
Author Name Unknown Organization [facility] Address [address] [facility] [place] [address] Phone [phone] Care Team Providers Care Mysql Developer Name Role Phone Unavailable Primary Care Provider Unavailabl e Encounter Details Date Type Department Care Team (Late st Contact Info) Description 11/28/2023 Orders Only PATIENT PORTAL DO NOT DELETE THIS DEPT USED BY [place] KEMP [id number] Allergies No known active allergiesdocumented as of this encounter (statuses as of 11/28/2023) Medications Medication Sig Dispensed Refills Start Date End Date Status DHA 200 MG Oral Capsule (docosahexaenoic Acid) Take 1 Capsule by mouth in the morning. Active documented as of this encounter (statuses as of 11/28/2023) Active Problems Problem Noted Date Diagnosed Date Supervision of other normal , antepartu m 08/28/2023 Estimated Date of Delivery Comme nts Yes 02/29/2024 Based on Ultraso und documented as of this encounter (statuses as of 11/28/2023) Immunizations Name Administration Dates Next Due Adenovirus [...] drink = 0.6 oz pur e alcohol) [place] Depression Scale Answer Date Recorded [place] Depression Scale Total 0 08/28/2023 The thought [...] 12/15/2023 2:00 PM EDT Office Visit Gynecology/Obstetrics, [address] [place] [address] Angela Alex MD [address] [place] [address] [place] [address] 12/29/2023 8:45 AM EST Office Visit Gynecology/Obstetrics [address] [place] [address] Jocy Padilla MD [address] [place] [address] [place] [address] 01/11/2024 3:00 PM EST Office Visit Gynecology/ObstetricsMoust[place] [address] [place], [place] [address] [address] Jocy Padilla MD [address] [place] [address] Health Maintenance Due Date Last Done Comments Depression Screening 2008 COVID-19 Vaccine (3 - 2024-25 season) 2023 12/13/2020, 11/08/2020 Influenza Vaccine (FLU [...]
--- OUTSIDE RECORDS SUMMARY | 2024-02-29 08:28 | External Medical Summary | Summary of Care ---
Author Name Unknown Organization [facility] Address [address] [place] [facility] [address] Phone [phone] Care Team Providers Care Housekeeper Manager Name Role Phone Unavailable Primary Care Provider Unavailabl e Encounter Details Date Type Department Care Team (Late st Contact Info) Description 09/04/2023 Telephone Gynecology/Obstetrics, [place] 400 [facility] [place] [address] Audra Acuña [facility] 400 [place] [address] Allergies No known active allergiesdocumented as [...] drink = 0.6 oz pur e alcohol) [facility] Depression Scale Answer Date Recorded [place] Depression Scale Total 0 08/28/2023 The thought [...] 8:54 AM EDT Printed and placed at front desk supervisor for picket labor union * Telephone Encounter - Tova Brar RN - 09/04/2023 8:37 AM EDT T/C from pt requesting NOB lab results to be printed out for her to picket labor union. States she needs the results to include the ordering provider's name for insurance/employment requirements. The barry does not include that information on the results. Pt was seen in [facility] office, but would like to pick them up at the [place]'s office if possible. Please print results and place at front desk supervisor for pt to picket labor union. documented in this encounter Plan of Treatment Upcoming Encounters Date Type Department Care Team (Late st Contact Info) Description 09/27/2023 2:00 PM EDT Office Visit Gynecology/Obstetrics, [place] [address] [place] [address] Leanne Liang MD [address] [place] [address] Health Maintenance Due Date Last Done Comments [...]
--- OUTSIDE RECORDS SUMMARY | 2024-02-29 08:28 | External Medical Summary | Summary of Care ---
Author Name Unknown Organization [facility] [address] [address] Phone [phone] Care Team Providers Care Lotteries Agent Name Role Phone Unavailable Primary Care Provider Unavailabl e Reason for Visit * Reason Comments Return Visit [id number] Encounter Details Date Type Department Care Team (Late st Contact Info) Description 10/25/2023 3:30 PM EDT Office [facility] [address] [facility] [place] [address] Silvana Edwards PA-C [address] [facility] [place] [address] Supervision of other normal , antepartum* Allergies No known active allergiesdocumented as of this encounter (statuses as of 10/25/2023) Medications Medication Sig Dispensed Refills Start Date End Date Status DHA 200 MG Oral Capsule (docosahexaenoic Acid) Take 1 Capsule by mouth in the morning. Active documented as of this encounter (statuses as of 10/25/2023) Active Problems Problem Noted Date Diagnosed Date Supervision of other normal , antepartu m 08/28/2023 Estimated Date of Delivery Comme nts Yes 02/29/2024 Based on Ultraso und documented as of this encounter (statuses as of 10/25/2023) Immunizations Name Administration Dates Next Due Adenovirus [...] drink = 0.6 oz pur e alcohol) Lamoni Depression Scale Answer Date Recorded Lamoni Depression Scale Total 0 08/28/2023 The thought [...] Reading Time Taken Comments Blood Pressure 102/60 10/25/2023 3:40 PM EDT Pulse - - Temperature 36.7 C (98.1 F) 10/25/2023 3:40 PM ED T Respiratory Rate - - Oxygen Saturation - - Inhaled Oxygen Concentration - - Weight 60.2 kg (132 lb 12.8 oz) 10/25/2023 3:40 PM EDT Height - - Body Mass Index - - documented in this encounter Progress Notes * Silvana Edwards PA-C - 10/25/2023 3:35 PM EDT Lokesh Luciano is a 28 year old female here for her routine OB appointment at 21w6d Her Estimated Date of Delivery: 02/29/24 REVIEW OF SYSTEMS She affirms movement. Denies vaginal bleeding, LOF, contractions, N/V, headaches, vision changes. PHYSICAL EXAM Filed Vitals: 10/25/23 1540 BP: 102/60 Temp: 36.7 C (98.1 F) Weight: 60.2 kg (132 lb 12.8 oz) +FHT 150s Fundal height 22 cm ASSESSMENT/PLAN Supervision of other normal , antepartum (Primary) Supervision of - recommended flu vaccine - patient declines. Requesting exemption letter for work. Informed that [employer] unable to provide exemptions for vaccinations. - had anatomy u/s 10/15 - results WNLs RTO in 4 weeks Silvana Edwards PA-C 10/25/2023 documented in this encounter Nursing Notes * Yuli Ford LPN - 10/25/2023 3:41 PM EDT Chief Complaint Patient presents with Return Visit 21w6d Yuli Ford LPN 10/25/2023 3:41 PM documented in this encounter Plan of Treatment Upcoming Encounters Date Type Department Care Team (Late st Contact Info) Description 11/22/2023 3:30 PM EDT Office Visit Gynecology/Obstetrics, [place] [address] [place] [id number] Silvana Edwards PA-C [address] [place] [address] Health Maintenance Due Date Last Done Comments [...]
--- NOTE | 2024-02-29 09:09 | History & Physical Report ---
Date of Service February 29, 2024 Assessment & Plan (1) Encounter for induction of labor: Plan: patient is a 28-year-old -0-0-1 at 40 weeks of gestation who was scheduled for induction of labor at term, Vital signs stable afebrile, GBS negative, No medical problems, Cervix unfavorable, Patient desires ambulation during labor, Discussed options of induction of labor including oxytocin, prostaglandin inserted/Cervidil, p.o. Cytotec and the differences and what to expect. After long discussion patient decided to get Cervidil, All questions were answered. (2) 40 weeks gestation of : Admission and Anticipated Discharge Date Admission Date: February 29, 2024 History of Present Illness Primary Care Provider: NO PCP Patient is a 28-year-old -0-0-1 at 40 weeks who was scheduled for induction of labor at term. She has no complaints. She denies regular contractions, leak age of fluid, vaginal bleeding. She reports good movements. She denies any medical problems, surgeries, medication use. Her has been uncomplicated, GBS is negative. patient desires to ambulate during labor. Patient History Social History Smoking Status: Never smoker Hx Alcohol Use: No Hx Substance Use: No Preferred Language: Kyrgyz Communication Ability: Effective [employer] Supervisor Required: No Beliefs That Will Affect Care: None marital status: Khalif Luciano Current Living Situation: Spouse and Family Current Living Situation Comment: spouse and daughter (7yo) Other Information That Helps Us Care for You: No Feels Safe at Home: Yes Safety Concerns: Feels Safe At This Time Assistive Devices: None OB History full-term in 2017, no complications, baby was 6+ pounds. 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 History no history of STDs, no history of chlamydia, gonorrhea, herpes Review of Systems as per Subjective / HPI Physical Exam Constitutional: WD/WN, vitals as above well developed, well nourished and comfortable Genitourinary: normal external appearance OB Exam Abdomen: + vertex Manual OB Exam: + cervical dilation 2 cm, + cervical effacement 20% and + station high ( -3) OB Exam Monitor Tracing: + external uterine monitor used and + category I Results & Data Vital Signs (Past 12 Hours) Vital Signs Temp Pulse Resp BP 02/29/24 08:06 90 02/29/24 08:06 123/81 02/29/24 07:47 36.8 C 20 02/29/24 07:40 107 H 123/89
[2024-02-29 09:22] LABS: Hemoglobin 11.7 g/dl (12.0-16.0); Mean Corpuscular Hemoglobin 31.3 pg (25.0-34.0); Mean Corpuscular Hgb Conc 34.4 g/dL (32.0-36.0); Mean Corpuscular Volume 90.9 fL (80.0-100.0); Mean Platelet Volume 11.4 fL (9.4-12.4); Platelet Count 144 K/uL (130-400); RDW Coefficient of Variation 13.2 % (11.5-14.5); RDW Standard Deviation 42.8 fL (36.4-46.3); Red Blood Count 3.74 M/uL (4.20-5.40)
[2024-02-29] MEDS ORDERED: Patient's ALLERGY Info needs ENTERED SCH (09:30)
[2024-02-29] MEDS: DINOPROSTONE 10 MG INSERT PV ONE (09:52)
--- NOTE | 2024-02-29 09:57 | Obstetrical Progress Note ---
Date of Service February 29, 2024 Assessment & Plan Admission and Anticipated Discharge Date Admission Date: February 29, 2024 Subjective Cervidil is placed in posterior cervix Results & Data Vital Signs (Past 12 Hours) Vital Signs Temp Pulse Resp BP 02/29/24 08:06 90 02/29/24 08:06 123/81 02/29/24 07:47 36.8 C 20 02/29/24 07:40 107 H 123/89
[2024-02-29] MEDS ORDERED: BUTORPHANOL TARTRATE 2 MG/ML VIAL IV PRN (09:59)
--- NOTE | 2024-02-29 15:12 | Obstetrical Progress Note ---
Date of Service February 29, 2024 Assessment & Plan Admission and Anticipated Discharge Date Admission Date: February 29, 2024 Subjective Patient is reevaluated. She feels well, no complaints she feels mild irregular contractions, they are not painful. She rates pain level as 1-2 out of 10. Patient denies leakage of fluid or vaginal bleeding. She reports good movements. heart rate category 1, Contractions every 3 to 4 minutes, patient does not feel them all, Continue with cervical ripening, All questions were answered. Results & Data Vital Signs (Past 12 Hours) Vital Signs Temp Pulse Resp BP 02/29/24 14:34 84 02/29/24 14:34 119/81 02/29/24 11:58 62 02/29/24 11:58 118/57 L 02/29/24 08:06 90 02/29/24 08:06 123/81 02/29/24 07:47 36.8 C 20 02/29/24 07:40 107 H 123/89
[2024-02-29] MEDS: Patient's ALLERGY Info needs ENTERED STA (15:35)
--- NOTE | 2024-02-29 22:10 | Obstetrical Progress Note ---
Date of Service February 29, 2024 Assessment & Plan Admission and Anticipated Discharge Date Admission Date: February 29, 2024 Subjective Patient has been walking around between monitoring Feels contractions more often but they are not painful yet, rates pain 3 out of 10. Cervidil is removed from vagina, cervix is 2 to 3 cm, 60% effaced, head is -2 station, with a bulging bag, heart rate category 1, toco contractions every 2 to 3 minutes, they feel mild on patient does not feel all of them, Discussed the findings and options of continued with cervical ripening with p.o. Cytotec and ambulation during labor, augmentation with Pitocin continue to monitor closely, will decide when contractions spaced out. Results & Data Vital Signs (Past 12 Hours) Vital Signs Temp Pulse Resp BP 02/29/24 19:03 36.9 C 16 02/29/24 19:01 59 L 02/29/24 19:01 109/57 L 02/29/24 18:03 73 02/29/24 18:03 111/63 02/29/24 14:34 84 02/29/24 14:34 37.1 C 20 119/81 02/29/24 11:58 62 02/29/24 11:58 36.8 C 20 118/57 L
[2024-03-01] MEDS ORDERED: miSOPROStoL 50 MCG TAB PO SCH
--- NOTE | 2024-03-01 00:25 | Obstetrical Progress Note ---
Date of Service March 01, 2024 Assessment & Plan Admission and Anticipated Discharge Date Admission Date: February 29, 2024 Subjective patient started to feel stronger contractions, she has been walking in hallways. She plans to have unmedicated labor, does not want epidural nor IV pain medications. Patient also declined oxytocin since admission she desires artificial rupture of membranes since that, Vital signs stable afebrile, heart rate category 1, Baudette shows contractions every 1 to 4 minutes, patient rates the pain a 4 out of 10, Cervix is 2 to 3 cm, 50% effaced, head is engage, and -2 with a bulging bag, AROM, clear fluids, Continue to monitor closely Results & Data Vital Signs (Past 12 Hours) Vital Signs Temp Pulse Resp BP 02/29/24 23:05 58 L 02/29/24 23:05 116/62 02/29/24 23:01 18 02/29/24 23:01 36.6 C 18 02/29/24 19:03 36.9 C 16 02/29/24 19:01 59 L 02/29/24 19:01 109/57 L 02/29/24 18:03 73 02/29/24 18:03 111/63 02/29/24 14:34 84 02/29/24 14:34 37.1 C 20 119/81
[2024-03-01] MEDS ORDERED: SODIUM CHLORIDE 0.9% PF INJ 10 ML VIAL EPI PRN (02:12)
[2024-03-01] MEDS ORDERED: fentaNYL citrate PF 100 MCG/2 ML VIAL EPI PRN (02:12)
[2024-03-01] MEDS ORDERED: NALOXONE HCL 0.4 MG/1 ML VIAL/CARP IV PRN (02:12)
[2024-03-01] MEDS ORDERED: NALBUPHINE HCL INJ 10 MG/ML AMP IV PRN (02:12)
[2024-03-01] MEDS ORDERED: ROPIVACAINE 0.5% PF 5 MG/ML 20 ML VIAL EPI PRN (02:12)
[2024-03-01] MEDS ORDERED: ePHEDrine sulfate 50 MG/ML AMP IV PRN (02:12)
[2024-03-01] MEDS ORDERED: BUPIVACAINE 0.25% PF 30 ML VIAL EPI PRN (02:12)
[2024-03-01] MEDS ORDERED: ONDANSETRON INJ 2 MG/ML 2 ML VIAL IV PRN (02:12)
[2024-03-01] MEDS ORDERED: diphenhydrAMINE 50 MG/ML VIAL IV PRN (02:12)
[2024-03-01] MEDS ORDERED: LIDOCAINE 2% MPF LOCAL 5 ML VIAL EPI PRN (02:12)
--- NOTE | 2024-03-01 02:14 | Anesthesiology Consultation ---
Date of Service March 01, 2024 Assessment & Plan (1) Encounter for pre-operative examination: Chart Review Chart Review: Patient NOT seen in Pre Admission Testing and Acceptable Risk for Labor Epidural Consults Requested none History Height/Weight Height: 5 ft 1 in Weight: 67.585 kg Allergies Allergy/AdvReac Type Severity Reaction Status Date / Time No Known Allergies Allergy Unverified 02/29/24 10:27 Medications Home Medications Medication Instructions Recorded Confirmed Last Taken vits no.124-ferrous fum 1 tab PO DAILY 02/29/24 02/29/24 02/28/24 08:00 27 mg iron-folic acid 800 mcg tablet ( Vitamin) Past Medical History Medical History (Updated 03/01/24 @ 02:14 by Cory Joaquin MD) Encounter for pre-operative examination Exercise / Class Metabolic Activity II 4-5 Yardwork/Stairs/Walk up hill Social History Smoking Status: Never smoker Hx Alcohol Use: No Hx Substance Use: No Physical Exam Vital Signs Last Vital Signs Temp 36.8 C 03/01/24 00:23 Pulse 60 03/01/24 02:36 Resp 18 03/01/24 00:23 BP 116/62 02/29/24 23:05 Pulse Ox 93 03/01/24 02:36 Testing Laboratory Results 02/29/24 08:47
[2024-03-01] MEDS: SODIUM CHLORIDE 0.9% 500 ML IV SCH (02:15)
[2024-03-01] MEDS: NALOXONE HCL 1 MG in SODIUM CHLORIDE 0.9% 1,000 ML IV PRN (02:38)
[2024-03-01] MEDS: fentaNYL citrate PF 100 MCG/2 ML VIAL EPI STA (02:41)
[2024-03-01] MEDS: BUPIVACAINE 0.25% PF 30 ML VIAL EPI STA (02:41)
[2024-03-01] MEDS: LIDOCAINE 2%/EPINEPHRINE 1:200,000 20 ML PF EPI STA (02:41)
[2024-03-01] MEDS: fentANYL 2 MCG/ML BUPIVacaine 0.125%-NSS 100ML BAG EPI PRN (02:46)
[2024-03-01] MEDS: SODIUM CHLORIDE 0.9% PF INJ 10 ML VIAL EPI STA (03:09)
[2024-03-01] MEDS: LIDOCAINE 2%/EPINEPHRINE 1:200,000 20 ML PF ONE (03:10)
[2024-03-01] MEDS: fentANYL 2 MCG/ML BUPIVacaine 0.125%-NSS 100ML BAG ONE (03:10)
[2024-03-01] MEDS: BUPIVACAINE 0.25% PF 30 ML VIAL ONE (03:10)
[2024-03-01] MEDS: fentaNYL citrate PF 100 MCG/2 ML VIAL ONE (03:10)
[2024-03-01] MEDS: ePHEDrine sulfate 50 MG/ML AMP ONE (03:10)
[2024-03-01] MEDS: SODIUM CHLORIDE 0.9% PF INJ 10 ML VIAL ONE (03:11)
[2024-03-01] MEDS: OXYTOCIN 30 UNITS/NSS 30 UNITS/500 ML BAG IV PRN (05:00)
[2024-03-01] MEDS ORDERED: ACETAMINOPHEN 325 MG TAB PO PRN (05:11)
[2024-03-01] MEDS ORDERED: HYDROCORTISONE ACETATE 25 MG SUPP PR PRN (05:11)
[2024-03-01] MEDS ORDERED: bisacodyL 10 MG SUPP PR PRN (05:11)
[2024-03-01] MEDS ORDERED: BENZOCAINE 20% SPRY 85 APPLN/85 GM CAN EXT PRN (05:11)
[2024-03-01] MEDS ORDERED: IBUPROFEN 600 MG TAB PO PRN (05:11)
--- NOTE | 2024-03-01 05:13 | Delivery Summary ---
Vaginal Delivery Summary Date of Service March 01, 2024 Vaginal Delivery Summary Patient was found to be fully dilated and desires to push. She pushed for only once and delivered the head and then shoulders spontaneously after the head. The baby was handed off to the mother. The cord was clampedx2 and cut at 1 minute. The vagina and perineum were checked and found to be intact, no laceration. The placenta was delivered spontaneously as intact and complete. The uterus was explored and found to be empty. QBL was 156 ml. The fundus was firm The baby was a viable female infant, Apgars 9/9, the weight is pending The mother and the baby tolerated the procedure well. No complications happened and I was present during whole procedure.
--- NOTE | 2024-03-01 05:16 | Anesthesia Procedure Note ---
Date of Service March 01, 2024 Anesthesia Post Epidural Note Vital Signs Vital Signs: Temp Pulse Resp BP Pulse Ox 37.1 C 66 18 103/60 97 03/01/24 04:21 03/01/24 05:12 03/01/24 04:21 03/01/24 05:12 03/01/24 05:10 Notes Mental Status: alert / awake / arousable and participated in evaluation Nausea / Vomiting: adequately controlled Pain: adequately controlled Airway Patency, RR, SpO2: stable & adequate BP & HR: stable & adequate Hydration State: stable & adequate Neuraxial Anesthesia: was administered and sensory block is resolving Anesthetic Complications: no major complications apparent and Pt Satisfied with anesthetic care Epidural: Removed without complications and With tip intact
[2024-03-01] MEDS: FERROUS SULFATE 325 MG TAB PO SCH (08:00)
[2024-03-01] MEDS: PRENATAL VITAMIN 1 TAB PO SCH (08:00)
[2024-03-01] MEDS: DOCUSATE SODIUM 100 MG CAP PO SCH (08:00)
[2024-03-01] MEDS: DIPHTHER/TETAN/PERTUS Vaccine (Tdap, Adol/Adult) 0.5mL IM ONE (10:46)
[2024-03-01] MEDS: MEASLES, MUMPS & RUBELLA VIRUS VACCINE (MMR) 0.5ML VIAL SQ ONE (10:48)
[2024-03-01 17:21] VITALS: RESP 16
--- NOTE | 2024-03-02 07:45 | Obstetrical Progress Note ---
Date of Service March 02, 2024 Subjective Ambulation: ambulating normally Voiding: no voiding problems Passing Gas:: Yes Diet Tolerance:: regular diet Lochia:: Small Feeding Type:: bottle feeding Current Pain Level(1-10): 0 doing well. wants to go home today. Physical Exam Constitutional WD/WN, vitals as above Gastrointestinal (Abdomen) Inspection/Auscultation: abdomen normal to inspection abdomen soft and non-tender. fundus firm below U. Musculoskeletal Extremities: extremities normal to inspection Skin no rashes, warm and dry Neurologic patellar DTR's 2+ bilat, sensation intact Psychiatric A+Ox3, euthymic affect Results & Data Vital Signs (Past 12 Hours) Vital Signs Temp Pulse Resp BP Pulse Ox 03/02/24 03:08 36.6 C 55 L 16 102/66 97 03/01/24 23:12 36.7 C 68 16 109/74 96 Laboratory Results 02/29/24 08:47 WBC 5.20 RBC 3.74 L Hgb 11.7 L Hct 34.0 L MCV 90.9 MCH 31.3 MCHC 34.4 RDW Std Deviation 42.8 RDW Coeff of Maria M 13.2 Plt Count 144 MPV 11.4 Treponema pallidum Ab Negative
[2024-03-02 07:56] LABS: Hematocrit (blood only) 36.1 % (37.0-47.0); Hemoglobin 12.3 g/dl (12.0-16.0); Mean Corpuscular Hgb Conc 34.1 g/dL (32.0-36.0); Mean Corpuscular Volume 90.9 fL (80.0-100.0); Mean Platelet Volume 11.3 fL (9.4-12.4); Platelet Count 142 K/uL (130-400); RDW Coefficient of Variation 13.1 % (11.5-14.5); RDW Standard Deviation 43.3 fL (36.4-46.3); Red Blood Count 3.97 M/uL (4.20-5.40); White Blood Count 7.29 K/ul (4.8-10.8)
[2024-03-02 08:36] VITALS: BP 98/64; PULSE 63; TEMP 98.1; O2SAT 95
[2024-03-02] MEDS ORDERED: bisacodyL 5 MG TABEC PO SCH (20:00)
== END 2024-03-02 10:43 | disposition home health service (06) | DRG 807 ==
LOC: 4S1 07:25 → 4E2 03-01 07:06